=== PATIENT | male | born 1950 | race Caucasian/White ===

== ENCOUNTER 2019-05-16 09:06 | Outpatient (RCR) | payer MEDICARE, OTHER, SELFPAY ==
[2019-05-16 09:36] VITALS: BP 133/82; PULSE 90; RESP 16; TEMP 37.2; BMI 36.3
--- NOTE | 2019-05-16 16:57 | HP.PCM_ITS ---
(1) Cutaneous T-cell lymphoma Status: Acute Current Visit: Yes Code(s): C84.A0 - Cutaneous T-cell lymphoma, unspecified, unspecified site (2) Skin ulcer Status: Chronic Current Visit: Yes Qualifiers: Non-pressure ulcer stage: limited to breakdown of skin Qualified Code(s): L98.491 - Non-pressure chronic ulcer of skin of other sites limited to breakdown of skin Code(s): L98.499 - Non-pressure chronic ulcer of skin of other sites with unspecified severity Comment: Multiple sites/ Generalized. History of Present Illness Date of Service: 05/17/19 Chief Complaint: Nonhealing skin ulcer History of Wound: Mr. Saunders is a 68-year-old who presents to the wound center due to nonhealing almost generalized skin ulcer. 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 Over the months, has used Xeroform and an absorptive dressing without any significant improvement. Reports significant drainage from all ulcer sites. Also currently on Eliquis due to deep vein thrombosis with subsequent easy bleeding. He feels well otherwise. Denies chills, fever. Currently undergoing chemotherapy as well and follows up at [facility]. Past Medical History Past Medical History: Chronic Problems Skin ulcer (Chronic) Multiple sites/ Generalized. Allergies/Adverse Reactions: Allergies cephalexin Allergy (Verified 05/16/19 10:37) Hives Home Medications: Ambulatory Orders Medication Instructions Recorded Acyclovir [Zovirax] 400 mg PO BID 05/16/19 Apixaban [Eliquis] 5 mg PO BID 05/16/19 Atorvastatin Calcium [Lipitor] 10 mg PO QHS 05/16/19 DiphenhydrAMINE [Benadryl] 50 mg PO BID PRN PRN 05/16/19 Doxycycline 100 mg PO DAILY 05/16/19 Finasteride [Proscar] 5 mg PO DAILY 05/16/19 Gabapentin 1,200 mg PO BID 05/16/19 Gemzar 05/16/19 Levothyroxine Sodium [Synthroid] 50 mcg PO DAILY 05/16/19 Tamsulosin HCl [Flomax] 0.4 mg PO DAILY 05/16/19 Smoking Status: Never smoker Review of Systems Constitutional: Denies: Anorexia, Chills, Fever Eyes: Denies: Pain, Redness HEENT: Denies: Difficulty Swallowing Cardiovascular: Denies: Chest Pain, Chest Pressure Gastrointestinal: Denies: Hematemesis, Vomiting Skin: Denies: Jaundice - Physical Exam Vital Signs Temp Pulse Resp BP 98.9 F 90 16 133/82 H 05/16/19 09:36 05/16/19 09:36 05/16/19 09:36 05/16/19 09:36 General: Alert, Oriented x3, Cooperative, No apparent distress HEENT: Atraumatic, Normocephalic Oral: Moist Mucosa Neck: Supple Lungs: Normal air movement Abdomen: Soft, Obese Extremities: No cyanosis, Edema Skin: Ulcer/ Wound Wound Measurements and Assessment WC - Nurse 1 - General Ulcer Measurement Start: 05/16/19 09:30 Freq: Status: Active Protocol: Activity Type Activity Date Activity User E-Sign Co-Sign Detail Recorded Client Recorded Date Recorded By Document 05/16/19 09:[address] [facility] [id number] 05/16/19 10:[address] [facility] 05/16/19 09:36 Wound Center Nurse 1 [Ulcer Assessment] #10 SCROTRUM (CTCL) -Combined with other wound No -Current Size (cm) - Length 1.9 -Current Size (cm) - Width 1.8 -Current Size (cm) - Depth 0.1 -Total Square Cm 3.42 -Date of Last Picture (Recall this 05/16/19 field) -Photo Taken Yes -Epithelialization None Present -Tunneling No -Undermining/Tunneling No -Circular Undermining No -Exudate Amt None Present -Wound Margin Distinct, Outline Attached -Granulation Amt Medium (34-66%) -Granulation Quality Red -Slough/Fibrin Yes -Necrosis Amt Medium (34-66%) -Necrotic Tissue Type Adherent Slough -Texture (Adele-wound Skin Appearance) Assessed, Scarring -Moisture (Adele-wound Skin Appearance Assessed,Dry/ ) Scaly -Color (Adele-wound Skin Appearance) Assessed, Erythema -Temperature (Adele-wound Skin No Abnormality Appearance) (Pt Warm) -Tenderness on Palpation (Adele-wound No Skin Appearance) -Ulcer Cleansing Rinsed/ Irrigated with Saline -Foul Odor after Cleansing No -Anesthetic Used 4% Lidocaine Solution #9- RIGHT THIGH CLUSTER (CTCL) -Combined with other wound No -Current Size (cm) - Length 22 -Current Size (cm) - Width 21 -Current Size (cm) - Depth 0.1 -Total Square Cm 462 -Date of Last Picture (Recall this 05/16/19 field) -Photo Taken Yes -Epithelialization None Present -Tunneling No -Undermining/Tunneling No -Circular Undermining No -Exudate Amt None Present -Wound Margin Distinct, Outline Attached -Granulation Amt Medium (34-66%) -Granulation Quality Red -Slough/Fibrin Yes -Necrosis Amt Medium (34-66%) -Necrotic Tissue Type Eschar -Texture (Adele-wound Skin Appearance) Assessed, Scarring -Moisture (Adele-wound Skin Appearance Assessed,Dry/ ) Scaly -Color (Adele-wound Skin Appearance) Assessed, Erythema -Temperature (Adele-wound Skin No Abnormality Appearance) (Pt Warm) -Tenderness on Palpation (Adele-wound Yes Skin Appearance) -Ulcer Cleansing Rinsed/ Irrigated with Saline -Foul Odor after Cleansing No -Anesthetic Used 5% Lidocaine Gel #8- LEFT THIGH CLUSTER (CTCL) -Combined with other wound No -Current Size (cm) - Length 41 -Current Size (cm) - Width 33.5 -Current Size (cm) - Depth 0.1 -Total Square Cm 1373.5 -Date of Last Picture (Recall this 05/16/19 field) -Photo Taken Yes -Epithelialization None Present -Tunneling No -Undermining/Tunneling No -Circular Undermining No -Exudate Amt None Present -Exudate Type Serous -Wound Margin Distinct, Outline Attached -Granulation Amt Small (1-33%) -Granulation Quality Red -Slough/Fibrin Yes -Necrosis Amt Large (67-100%) -Necrotic Tissue Type Eschar -Texture (Adele-wound Skin Appearance) Assessed, Scarring -Moisture (Adele-wound Skin Appearance Assessed,Dry/ ) Scaly -Color (Adele-wound Skin Appearance) Assessed, Erythema -Temperature (Adele-wound Skin No Abnormality Appearance) (Pt Warm) -Tenderness on Palpation (Adele-wound Yes Skin Appearance) -Ulcer Cleansing Rinsed/ Irrigated with Saline -Foul Odor after Cleansing No -Anesthetic Used 5% Lidocaine Gel #7- L FLANK CLUSTER (CTCL) -Combined with other wound No -Current Size (cm) - Length 4.1 -Current Size (cm) - Width 5.8 -Current Size (cm) - Depth 0.1 -Total Square Cm 23.78 -Date of Last Picture (Recall this 05/16/19 field) -Photo Taken Yes -Epithelialization None Present -Tunneling No -Undermining/Tunneling No -Circular Undermining No -Exudate Amt Small -Exudate Type Serous -Wound Margin Distinct, Outline Attached -Granulation Amt Medium (34-66%) -Granulation Quality Red -Slough/Fibrin Yes -Necrosis Amt Medium (34-66%) -Necrotic Tissue Type Eschar -Texture (Adele-wound Skin Appearance) Assessed, Scarring -Moisture (Adele-wound Skin Appearance Assessed,Dry/ ) Scaly -Color (Adele-wound Skin Appearance) Assessed, Erythema -Temperature (Adele-wound Skin No Abnormality Appearance) (Pt Warm) -Tenderness on Palpation (Adele-wound Yes Skin Appearance) -Ulcer Cleansing Rinsed/ Irrigated with Saline -Foul Odor after Cleansing No -Anesthetic Used 5% Lidocaine Gel #6- BACK CLUSTER -Combined with other wound No -Current Size (cm) - Length 18 -Current Size (cm) - Width 22.2 -Current Size (cm) - Depth 0.1 -Total Square Cm 399.6 -Date of Last Picture (Recall this 05/16/19 field) -Photo Taken Yes -Epithelialization None Present -Tunneling No -Undermining/Tunneling No -Circular Undermining No -Exudate Amt Small -Exudate Type Serous -Wound Margin Distinct, Outline Attached -Granulation Amt Medium (34-66%) -Granulation Quality Red -Slough/Fibrin Yes -Necrosis Amt Medium (34-66%) -Necrotic Tissue Type Eschar -Texture (Adele-wound Skin Appearance) Assessed, Scarring -Moisture (Adele-wound Skin Appearance Assessed,Dry/ ) Scaly -Color (Adele-wound Skin Appearance) Assessed, Erythema -Temperature (Adele-wound Skin No Abnormality Appearance) (Pt Warm) -Tenderness on Palpation (Adele-wound Yes Skin Appearance) -Ulcer Cleansing Rinsed/ Irrigated with Saline -Foul Odor after Cleansing No -Anesthetic Used 5% Lidocaine Gel #5- FACIAL CLUSTER (CTCL) -Combined with other wound No -Current Size (cm) - Length 13 -Current Size (cm) - Width 20.8 -Current Size (cm) - Depth 0.1 -Total Square Cm 270.4 -Date of Last Picture (Recall this 05/16/19 field) -Photo Taken Yes -Epithelialization None Present -Tunneling No -Undermining/Tunneling No -Circular Undermining No -Exudate Amt None Present -Wound Margin Distinct, Outline Attached -Granulation Amt Small (1-33%) -Granulation Quality Red -Slough/Fibrin Yes -Necrosis Amt Large (67-100%) -Necrotic Tissue Type Eschar -Texture (Adele-wound Skin Appearance) Assessed, Scarring -Moisture (Adele-wound Skin Appearance Assessed,Dry/ ) Scaly -Color (Adele-wound Skin Appearance) Assessed, Erythema -Temperature (Adele-wound Skin No Abnormality Appearance) (Pt Warm) -Tenderness on Palpation (Adele-wound Yes Skin Appearance) -Ulcer Cleansing Rinsed/ Irrigated with Saline -Foul Odor after Cleansing No -Anesthetic Used 5% Lidocaine Gel #4- LUE CLUSTER (CTCL) -Combined with other wound No -Current Size (cm) - Length 45 -Current Size (cm) - Width 18 -Current Size (cm) - Depth 0.1 -Total Square Cm 810 -Date of Last Picture (Recall this 05/16/19 field) -Photo Taken Yes -Epithelialization None Present -Tunneling No -Undermining/Tunneling No -Circular Undermining No -Exudate Amt Small -Exudate Type Serous -Wound Margin Distinct, Outline Attached -Granulation Amt Medium (34-66%) -Granulation Quality Red -Slough/Fibrin Yes -Necrosis Amt Medium (34-66%) -Necrotic Tissue Type Eschar -Texture (Adele-wound Skin Appearance) Assessed, Scarring -Moisture (Adele-wound Skin Appearance Assessed,Dry/ ) Scaly -Color (Adele-wound Skin Appearance) Assessed, Erythema -Temperature (Adele-wound Skin No Abnormality Appearance) (Pt Warm) -Tenderness on Palpation (Adele-wound Yes Skin Appearance) -Ulcer Cleansing Rinsed/ Irrigated with Saline -Foul Odor after Cleansing No -Anesthetic Used 5% Lidocaine Gel #3- RUE CLUSTER (CTCL) -Combined with other wound No -Current Size (cm) - Length 53.4 -Current Size (cm) - Width 10 -Current Size (cm) - Depth 0.1 -Total Square Cm 534.0 -Date of Last Picture (Recall this 05/16/19 field) -Photo Taken Yes -Epithelialization None Present -Tunneling No -Undermining/Tunneling No -Circular Undermining No -Exudate Amt Small -Exudate Type Serous -Wound Margin Distinct, Outline Attached -Granulation Amt Medium (34-66%) -Granulation Quality Red -Slough/Fibrin Yes -Necrosis Amt Medium (34-66%) -Necrotic Tissue Type Eschar -Structure Exposed None/Limited to Skin Breakdown -Texture (Adele-wound Skin Appearance) Assessed, Scarring -Moisture (Adele-wound Skin Appearance Assessed,Dry/ ) Scaly -Color (Adele-wound Skin Appearance) Assessed, Erythema -Temperature (Adele-wound Skin No Abnormality Appearance) (Pt Warm) -Tenderness on Palpation (Adele-wound Yes Skin Appearance) -Ulcer Cleansing Rinsed/ Irrigated with Saline -Foul Odor after Cleansing No -Anesthetic Used 5% Lidocaine Gel #2- L CHEST (CTCL) -Combined with other wound No -Current Size (cm) - Length 2.4 -Current Size (cm) - Width 2.4 -Current Size (cm) - Depth 0.1 -Total Square Cm 5.76 -Date of Last Picture (Recall this 05/16/19 field) -Photo Taken Yes -Epithelialization None Present -Tunneling No -Undermining/Tunneling No -Circular Undermining No -Exudate Amt None Present -Wound Margin Distinct, Outline Attached -Granulation Amt Large (67-100%) -Granulation Quality Red -Slough/Fibrin Yes -Necrosis Amt Small (1-33%) -Necrotic Tissue Type Eschar -Structure Exposed None/Limited to Skin Breakdown -Texture (Adele-wound Skin Appearance) Assessed, Scarring -Moisture (Adele-wound Skin Appearance Assessed,Dry/ ) Scaly -Color (Adele-wound Skin Appearance) Assessed, Erythema -Temperature (Adele-wound Skin No Abnormality Appearance) (Pt Warm) -Tenderness on Palpation (Adele-wound Yes Skin Appearance) -Ulcer Cleansing Rinsed/ Irrigated with Saline -Foul Odor after Cleansing No -Anesthetic Used 5% Lidocaine Gel #1- ABDOMINAL CLUSTER (CTCL) -Current Size (cm) - Length 19 -Current Size (cm) - Width 36.2 -Current Size (cm) - Depth 0.1 -Total Square Cm 687.8 -Date of Last Picture (Recall this 05/16/19 field) -Photo Taken Yes -Epithelialization None Present -Tunneling No -Undermining/Tunneling No -Circular Undermining No -Exudate Amt Small -Exudate Type Serosanguineous -Wound Margin Distinct, Outline Attached -Granulation Amt Large (67-100%) -Granulation Quality Red -Slough/Fibrin Yes -Necrosis Amt Small (1-33%) -Necrotic Tissue Type Eschar -Structure Exposed None/Limited to Skin Breakdown -Texture (Adele-wound Skin Appearance) Assessed, Scarring -Moisture (Adele-wound Skin Appearance Assessed,Dry/ ) Scaly -Color (Adele-wound Skin Appearance) Assessed, Erythema -Temperature (Adele-wound Skin No Abnormality Appearance) (Pt Warm) -Tenderness on Palpation (Adele-wound Yes Skin Appearance) -Ulcer Cleansing Rinsed/ Irrigated with Saline -Foul Odor after Cleansing No -Anesthetic Used 4% Lidocaine Solution [Edema Assessment] -Lower Limb Edema Present Yes -Right Calf (cm) 46 -Right Ankle (cm) 28.4 -Left Calf (cm) 45 -Left Ankle (cm) 27 WC - Nurse 2 - General Ulcer CM Notes Start: 05/16/19 09:30 Freq: Status: Active Protocol: Activity Type Activity Date Activity User E-Sign Co-Sign Detail Recorded Client Recorded Date Recorded By Document 05/16/19 11:24 MW [id number] 05/16/19 12:13 MW 05/16/19 11:24 Wound Center Nurse 2 [Procedure/Treatment] #10 SCROTRUM (CTCL) -Time 12:03 -Correct Patient Yes -Correct Side, Site, Position Yes -Correct Procedure Yes -Procedure Performed Yes -Type of Procedure Debridement -Clinical Debridement Subcutaneous -Post Debridement Size (cm) - Length 2.0 -Post Debridement Size (cm) - Width 3.0 -Post Debridement Size (cm) - Depth 0.1 -Total Square Cm 6.00 -Wound/Ulcer Outcome Not Healed -Ulcer Cleansing Rinsed/ Irrigated with Saline -Foul Odor after Cleansing No -Bioengineered Tissue No -Bleeding Controlled with Pressure -Offloading No -Treatment Response Procedure Tolerated Well #9- RIGHT THIGH CLUSTER (CTCL) -Time 12:03 -Correct Patient Yes -Correct Side, Site, Position Yes -Correct Procedure Yes -Procedure Performed Yes -Type of Procedure Debridement -Clinical Debridement Subcutaneous -Post Debridement Size (cm) - Length 23.0 -Post Debridement Size (cm) - Width 4.0 -Post Debridement Size (cm) - Depth 0.1 -Total Square Cm 92.00 -Wound/Ulcer Outcome Not Healed -Ulcer Cleansing Rinsed/ Irrigated with Saline -Foul Odor after Cleansing No -Bioengineered Tissue No -Bleeding Controlled with Pressure -Offloading No -Treatment Response Procedure Tolerated Well #8- LEFT THIGH CLUSTER (CTCL) -Time 12:01 -Correct Patient Yes -Correct Side, Site, Position Yes -Correct Procedure Yes -Procedure Performed Yes -Type of Procedure Debridement -Clinical Debridement Subcutaneous -Post Debridement Size (cm) - Length 15.0 -Post Debridement Size (cm) - Width 6.0 -Post Debridement Size (cm) - Depth 0.1 -Total Square Cm 90.00 -Wound/Ulcer Outcome Not Healed -Ulcer Cleansing Rinsed/ Irrigated with Saline -Foul Odor after Cleansing No -Bioengineered Tissue No -Bleeding Controlled with Pressure -Offloading No -Treatment Response Procedure Tolerated Well #7- L FLANK CLUSTER ([facility]) -Time 11:56 -Correct Patient Yes -Correct Side, Site, Position Yes -Correct Procedure Yes -Procedure Performed Yes -Type of Procedure Debridement -Clinical Debridement Subcutaneous -Post Debridement Size (cm) - Length 2.5 -Post Debridement Size (cm) - Width 7.0 -Post Debridement Size (cm) - Depth 0.1 -Total Square Cm 17.50 -Wound/Ulcer Outcome Not Healed -Ulcer Cleansing Rinsed/ Irrigated with Saline -Foul Odor after Cleansing No -Bioengineered Tissue No -Bleeding Controlled with Pressure -Offloading No -Treatment Response Procedure Tolerated Well #6- BACK CLUSTER -Time 11:57 -Correct Patient Yes -Correct Side, Site, Position Yes -Correct Procedure Yes -Procedure Performed Yes -Type of Procedure Debridement -Clinical Debridement Subcutaneous -Post Debridement Size (cm) - Length 24.0 -Post Debridement Size (cm) - Width 22.0 -Post Debridement Size (cm) - Depth 0.1 -Total Square Cm 528.00 -Wound/Ulcer Outcome Not Healed -Ulcer Cleansing Rinsed/ Irrigated with Saline -Foul Odor after Cleansing No -Bioengineered Tissue No -Bleeding Controlled with NA -Offloading No -Treatment Response Procedure Tolerated Well #5- FACIAL CLUSTER (CTCL) -Time 11:49 -Correct Patient Yes -Correct Side, Site, Position Yes -Correct Procedure Yes -Procedure Performed Yes -Type of Procedure Debridement -Clinical Debridement Subcutaneous -Post Debridement Size (cm) - Length 6.0 -Post Debridement Size (cm) - Width 6.0 -Post Debridement Size (cm) - Depth 0.1 -Total Square Cm 36.00 -Wound/Ulcer Outcome Not Healed -Ulcer Cleansing Rinsed/ Irrigated with Saline -Foul Odor after Cleansing No -Bioengineered Tissue No -Bleeding Controlled with Pressure -Offloading No -Treatment Response Procedure Tolerated Well #4- LUE CLUSTER ([facility]) -Time 11:33 -Correct Patient Yes -Correct Side, Site, Position Yes -Correct Procedure Yes -Procedure Performed Yes -Type of Procedure Debridement -Clinical Debridement Selective -Post Debridement Size (cm) - Length 48.0 -Post Debridement Size (cm) - Width 17.0 -Post Debridement Size (cm) - Depth 0.1 -Total Square Cm 816.00 -Wound/Ulcer Outcome Not Healed -Ulcer Cleansing Rinsed/ Irrigated with Saline -Foul Odor after Cleansing No -Bioengineered Tissue No -Bleeding Controlled with Pressure -Offloading No -Treatment Response Procedure Tolerated Well #3- RUE CLUSTER ([facility]) -Time 11:45 -Correct Patient Yes -Correct Side, Site, Position Yes -Correct Procedure Yes -Procedure Performed Yes -Type of Procedure Debridement -Clinical Debridement Subcutaneous -Post Debridement Size (cm) - Length 55.0 -Post Debridement Size (cm) - Width 15.0 -Post Debridement Size (cm) - Depth 0.1 -Total Square Cm 825.00 -Wound/Ulcer Outcome Not Healed -Ulcer Cleansing Rinsed/ Irrigated with Saline -Foul Odor after Cleansing No -Bioengineered Tissue No -Bleeding Controlled with Pressure -Offloading No -Treatment Response Procedure Tolerated Well #2- L CHEST ([facility]) -Time 11:54 -Correct Patient Yes -Correct Side, Site, Position Yes -Correct Procedure Yes -Procedure Performed Yes -Type of Procedure Debridement -Clinical Debridement Subcutaneous -Post Debridement Size (cm) - Length 5.0 -Post Debridement Size (cm) - Width 7.5 -Post Debridement Size (cm) - Depth 0.1 -Total Square Cm 37.50 -Wound/Ulcer Outcome Not Healed -Ulcer Cleansing Rinsed/ Irrigated with Saline -Foul Odor after Cleansing No -Bioengineered Tissue No -Bleeding Controlled with Pressure -Offloading No -Treatment Response Procedure Tolerated Well #1- ABDOMINAL CLUSTER (CTCL) -Time 11:29 -Correct Patient Yes -Correct Side, Site, Position Yes -Correct Procedure Yes -Procedure Performed Yes -Type of Procedure Debridement -Clinical Debridement Subcutaneous -Post Debridement Size (cm) - Length 24.0 -Post Debridement Size (cm) - Width 38.0 -Post Debridement Size (cm) - Depth 0.1 -Total Square Cm 912.00 -Wound/Ulcer Outcome Not Healed -Ulcer Cleansing Rinsed/ Irrigated with Saline -Foul Odor after Cleansing No -Bioengineered Tissue No -Bleeding Controlled with Pressure -Offloading No -Treatment Response Procedure Tolerated Well [See Physician Procedure note for Specifics] Musculoskeletal: No Muscle Wasting Neurological: Cranial nerves II-XII grossly intact Psych/Mental Status: Normal Affect Debridement Note Post-Debridement Measurements/Treatment WC - Nurse 2 - General Ulcer CM Notes Start: 05/16/19 09:30 Freq: Status: Active Protocol: Activity Type Activity Date Activity User E-Sign Co-Sign Detail Recorded Client Recorded Date Recorded By Document 05/16/19 11:24 MW [id number] 05/16/19 12:13 MW 05/16/19 11:24 Wound Center Nurse 2 #10 SCROTRUM ([facility]) -Time 12:03 -Correct Patient Yes -Correct Side, Site, Position Yes -Correct Procedure Yes -Procedure Performed Yes -Type of Procedure Debridement -Clinical Debridement Subcutaneous -Post Debridement Size (cm) - Length 2.0 -Post Debridement Size (cm) - Width 3.0 -Post Debridement Size (cm) - Depth 0.1 -Total Square Cm 6.00 -Wound/Ulcer Outcome Not Healed -Ulcer Cleansing Rinsed/ Irrigated with Saline -Foul Odor after Cleansing No -Bioengineered Tissue No -Bleeding Controlled with Pressure -Offloading No -Treatment Response Procedure Tolerated Well #9- RIGHT THIGH CLUSTER ([facility]) -Time 12:03 -Correct Patient Yes -Correct Side, Site, Position Yes -Correct Procedure Yes -Procedure Performed Yes -Type of Procedure Debridement -Clinical Debridement Subcutaneous -Post Debridement Size (cm) - Length 23.0 -Post Debridement Size (cm) - Width 4.0 -Post Debridement Size (cm) - Depth 0.1 -Total Square Cm 92.00 -Wound/Ulcer Outcome Not Healed -Ulcer Cleansing Rinsed/ Irrigated with Saline -Foul Odor after Cleansing No -Bioengineered Tissue No -Bleeding Controlled with Pressure -Offloading No -Treatment Response Procedure Tolerated Well #8- LEFT THIGH CLUSTER ([facility]) -Time 12:01 -Correct Patient Yes -Correct Side, Site, Position Yes -Correct Procedure Yes -Procedure Performed Yes -Type of Procedure Debridement -Clinical Debridement Subcutaneous -Post Debridement Size (cm) - Length 15.0 -Post Debridement Size (cm) - Width 6.0 -Post Debridement Size (cm) - Depth 0.1 -Total Square Cm 90.00 -Wound/Ulcer Outcome Not Healed -Ulcer Cleansing Rinsed/ Irrigated with Saline -Foul Odor after Cleansing No -Bioengineered Tissue No -Bleeding Controlled with Pressure -Offloading No -Treatment Response Procedure Tolerated Well #7- L FLANK CLUSTER ([facility]) -Time 11:56 -Correct Patient Yes -Correct Side, Site, Position Yes -Correct Procedure Yes -Procedure Performed Yes -Type of Procedure Debridement -Clinical Debridement Subcutaneous -Post Debridement Size (cm) - Length 2.5 -Post Debridement Size (cm) - Width 7.0 -Post Debridement Size (cm) - Depth 0.1 -Total Square Cm 17.50 -Wound/Ulcer Outcome Not Healed -Ulcer Cleansing Rinsed/ Irrigated with Saline -Foul Odor after Cleansing No -Bioengineered Tissue No -Bleeding Controlled with Pressure -Offloading No -Treatment Response Procedure Tolerated Well #6- BACK CLUSTER -Time 11:57 -Correct Patient Yes -Correct Side, Site, Position Yes -Correct Procedure Yes -Procedure Performed Yes -Type of Procedure Debridement -Clinical Debridement Subcutaneous -Post Debridement Size (cm) - Length 24.0 -Post Debridement Size (cm) - Width 22.0 -Post Debridement Size (cm) - Depth 0.1 -Total Square Cm 528.00 -Wound/Ulcer Outcome Not Healed -Ulcer Cleansing Rinsed/ Irrigated with Saline -Foul Odor after Cleansing No -Bioengineered Tissue No -Bleeding Controlled with NA -Offloading No -Treatment Response Procedure Tolerated Well #5- FACIAL CLUSTER ([facility]) -Time 11:49 -Correct Patient Yes -Correct Side, Site, Position Yes -Correct Procedure Yes -Procedure Performed Yes -Type of Procedure Debridement -Clinical Debridement Subcutaneous -Post Debridement Size (cm) - Length 6.0 -Post Debridement Size (cm) - Width 6.0 -Post Debridement Size (cm) - Depth 0.1 -Total Square Cm 36.00 -Wound/Ulcer Outcome Not Healed -Ulcer Cleansing Rinsed/ Irrigated with Saline -Foul Odor after Cleansing No -Bioengineered Tissue No -Bleeding Controlled with Pressure -Offloading No -Treatment Response Procedure Tolerated Well #4- LUE CLUSTER ([facility]) -Time 11:33 -Correct Patient Yes -Correct Side, Site, Position Yes -Correct Procedure Yes -Procedure Performed Yes -Type of Procedure Debridement -Clinical Debridement Selective -Post Debridement Size (cm) - Length 48.0 -Post Debridement Size (cm) - Width 17.0 -Post Debridement Size (cm) - Depth 0.1 -Total Square Cm 816.00 -Wound/Ulcer Outcome Not Healed -Ulcer Cleansing Rinsed/ Irrigated with Saline -Foul Odor after Cleansing No -Bioengineered Tissue No -Bleeding Controlled with Pressure -Offloading No -Treatment Response Procedure Tolerated Well #3- RUE CLUSTER ([facility]) -Time 11:45 -Correct Patient Yes -Correct Side, Site, Position Yes -Correct Procedure Yes -Procedure Performed Yes -Type of Procedure Debridement -Clinical Debridement Subcutaneous -Post Debridement Size (cm) - Length 55.0 -Post Debridement Size (cm) - Width 15.0 -Post Debridement Size (cm) - Depth 0.1 -Total Square Cm 825.00 -Wound/Ulcer Outcome Not Healed -Ulcer Cleansing Rinsed/ Irrigated with Saline -Foul Odor after Cleansing No -Bioengineered Tissue No -Bleeding Controlled with Pressure -Offloading No -Treatment Response Procedure Tolerated Well #2- L CHEST ([facility]) -Time 11:54 -Correct Patient Yes -Correct Side, Site, Position Yes -Correct Procedure Yes -Procedure Performed Yes -Type of Procedure Debridement -Clinical Debridement Subcutaneous -Post Debridement Size (cm) - Length 5.0 -Post Debridement Size (cm) - Width 7.5 -Post Debridement Size (cm) - Depth 0.1 -Total Square Cm 37.50 -Wound/Ulcer Outcome Not Healed -Ulcer Cleansing Rinsed/ Irrigated with Saline -Foul Odor after Cleansing No -Bioengineered Tissue No -Bleeding Controlled with Pressure -Offloading No -Treatment Response Procedure Tolerated Well #1- ABDOMINAL CLUSTER ([facility]) -Time 11:29 -Correct Patient Yes -Correct Side, Site, Position Yes -Correct Procedure Yes -Procedure Performed Yes -Type of Procedure Debridement -Clinical Debridement Subcutaneous -Post Debridement Size (cm) - Length 24.0 -Post Debridement Size (cm) - Width 38.0 -Post Debridement Size (cm) - Depth 0.1 -Total Square Cm 912.00 -Wound/Ulcer Outcome Not Healed -Ulcer Cleansing Rinsed/ Irrigated with Saline -Foul Odor after Cleansing No -Bioengineered Tissue No -Bleeding Controlled with Pressure -Offloading No -Treatment Response Procedure Tolerated Well Wound debrided: Left upper extremity cluster Type of Debridement: Selective debridement Anesthesia Used: 4% Lidocaine Solution Depth: Down to and including healthy tissue Percentage of wound debrided: 100 Instrument Used: 5mm curette Tissue Removed: Slough and devitalized tissue Severity: Limited To Skin Breakdown Amount of bleeding with debridement: Moderate Bleeding Controlled with: Pressure, Compression and gauze Patient tolerated procedure well - Additional Wound Wound debrided: Right upper extremity cluster Type of Debridement: Selective debridement Anesthesia Used: 4% Lidocaine Solution Depth: Down to and including healthy tissue Percentage of wound debrided: 100 Instrument Used: 5mm curette Tissue Removed: Slough and devitalized tissue Severity: Limited To Skin Breakdown Amount of bleeding with debridement: Moderate Bleeding Controlled with: Pressure Patient tolerated procedure: Patient tolerated procedure well - Additional Wound Wound debrided: Abdominal cluster Type of Debridement: Selective debridement Anesthesia Used: 4% Lidocaine Solution Depth: Down to and including healthy tissue Percentage of wound debrided: 100 Instrument Used: 5mm curette Tissue Removed: Slough and-Devitalized tissue Severity: Limited To Skin Breakdown Amount of bleeding with debridement: Moderate Bleeding Controlled with: Pressure, Compression and gauze Patient tolerated procedure: Patient tolerated procedure well - Additional Wound Wound debrided: Left flank Type of Debridement: Selective debridement Anesthesia Used: 4% Lidocaine Solution Depth: Down to and including healthy tissue Percentage of wound debrided: 100 Instrument Used: 5mm curette Tissue Removed: Slough and devitalized tissue Severity: Limited To Skin Breakdown Amount of bleeding with debridement: Mild Bleeding Controlled with: Pressure Patient tolerated procedure: Patient tolerated procedure well - Additional Wound Wound debrided: Facial cluster Type of Debridement: Selective debridement Anesthesia Used: 4% Lidocaine Solution Depth: Down to and including healthy tissue Percentage of wound debrided: 100 Instrument Used: 5mm curette Tissue Removed: Slough and devitalized tissue Amount of bleeding with debridement: Moderate Bleeding Controlled with: Pressure Patient tolerated procedure: Patient tolerated procedure well - Additional Wound Wound debrided: Mid back cluster Type of Debridement: Selective debridement Anesthesia Used: 4% Lidocaine Solution Depth: Down to and including healthy tissue Percentage of wound debrided: 100 Instrument Used: 5mm curette Tissue Removed: Slough and devitalized tissue Severity: Limited To Skin Breakdown Amount of bleeding with debridement: Moderate Bleeding Controlled with: Pressure Patient tolerated procedure: Patient tolerated procedure well - Additional Wound Wound debrided: Right thigh cluster Type of Debridement: Selective debridement Anesthesia Used: 4% Lidocaine Solution Depth: Down to and including healthy tissue, in the subcutaneous layer Percentage of wound debrided: 100 Instrument Used: 5mm curette Tissue Removed: Slough and devitalized tissue Severity: Limited To Skin Breakdown Amount of bleeding with debridement: Moderate Bleeding Controlled with: Pressure Patient tolerated procedure: Patient tolerated procedure well - Additional Wound Wound debrided: Left thigh cluster Type of Debridement: Selective debridement Anesthesia Used: 4% Lidocaine Solution Depth: Down to and including healthy tissue Percentage of wound debrided: 100 Instrument Used: 5mm curette Tissue Removed: Slough and devitalized tissue Severity: Limited To Skin Breakdown Amount of bleeding with debridement: Moderate Bleeding Controlled with: Pressure, Compression and gauze Patient tolerated procedure: Patient tolerated procedure well - Additional Wound Wound debrided: Scrotum Type of Debridement: Selective debridement Anesthesia Used: 4% Lidocaine Solution Depth: Down to and including healthy tissue Percentage of wound debrided: 100 Instrument Used: 5mm curette Tissue Removed: Slough and devitalized tissue Severity: Limited To Skin Breakdown Amount of bleeding with debridement: Mild Bleeding Controlled with: Pressure Patient tolerated procedure: Patient tolerated procedure well Assessment/Plan Active 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 DVT on anticoagulation with eliquis. Plan: Debridement done as documented above, procedure was well tolerated. Cultures taken. Aquacel extra with xeroform over areas of erythema. Change daily to twice daily depending on drainage. Will request records from . He requires HH due to extensive nature of ulcers. Increased protein intake is recommended. His questions were answered and he was advised to call with any questions or concerns. Multi Select Codes - Visit Charges Office Visit/Consults: [id number] OV L4 New - Integumentary Integumentary CPT Codes: 43884 Dina subq tissue 20 sq cm/<, Other Procedure See Report - Selective debridement. Additional square centimeters debrided. Please refer to clinical panel.
== END 2019-05-18 23:59 ==
LOC: WC 09:06
PROVIDERS: PCP Family Medicine; Referring Provider Internal Medicine; Visit Provider Internal Medicine
DX: L98.491 Non-pressure chronic ulcer of skin of other sites limited to breakdown of skin (principal); C84.A0 Cutaneous T-cell lymphoma, unspecified, unspecified site; M32.9 Systemic lupus erythematosus, unspecified; Z86.718 Personal history of other venous thrombosis and embolism; Z79.01 Long term (current) use of anticoagulants; Z79.899 Other long term (current) drug therapy; L98.421 Non-pressure chronic ulcer of back limited to breakdown of skin; L97.121 Non-pressure chronic ulcer of left thigh limited to breakdown of skin; L97.111 Non-pressure chronic ulcer of right thigh limited to breakdown of skin
CPT/HCPCS: 87070; 87075; 87077; 87186; 87205; 97597; 97598; 99203; G0463

== ENCOUNTER 2019-05-31 15:30 | Outpatient (RCR) | payer MEDICARE, OTHER, SELFPAY ==
[2019-05-19 01:12] VITALS: BP 133/82; PULSE 90; RESP 16; TEMP 37.2
[2019-05-31 15:55] VITALS: BP 148/76; PULSE 82; RESP 18; TEMP 37.2; BMI 36.3
--- NOTE | 2019-05-31 18:21 | PN.PCM_ITS ---
(1) Cutaneous T-cell lymphoma Status: Acute Current Visit: Yes Qualifiers: Lymphoma site: extranodal excluding spleen and other solid organs Qualified Code(s): C84.A9 - Cutaneous T-cell lymphoma, unspecified, extranodal and solid organ sites Code(s): C84.A0 - Cutaneous T-cell lymphoma, unspecified, unspecified site (2) Skin ulcer Status: Chronic Current Visit: Yes Qualifiers: Non-pressure ulcer stage: with fat layer exposed Qualified Code(s): L98.492 - Non-pressure chronic ulcer of skin of other sites with fat layer exposed Code(s): L98.499 - Non-pressure chronic ulcer of skin of other sites with unspecified severity Comment: Multiple sites/ Generalized. Type of Wound Date of Service: 05/31/19 Chief Complaint: Nonhealing skin ulcer History of Wound: Mr. Saunders is a 68-year-old who presents to the wound center due to nonhealing almost generalized skin ulcer. 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 Over the months, has used Xeroform and an absorptive dressing without any significant improvement. Reports significant drainage from all ulcer sites. Also currently on Eliquis due to deep vein thrombosis with subsequent easy bleeding. He feels well otherwise. Denies chills, fever. Currently undergoing chemotherapy as well and follows up at [facility]. Progress of Wound: This is a courtesy visit for Dr. Gonzalez. He is tolerating dressings and has noted much improvement in his ulcers. He has been using Aquacel to some and iodoform to others. The Aquacel has been adherent to the ulcers that he is using it on. Some ulcers drain heavily, especially the ones on his abdomen. He denies fever, chills, erythema. - Physical Exam Vital Signs Temp Pulse Resp BP 98.9 F 82 18 148/76 H 05/31/19 15:55 05/31/19 15:55 05/31/19 15:55 05/31/19 15:55 General: Alert, Oriented x3, Cooperative, No apparent distress HEENT: Atraumatic, Normocephalic Oral: Moist Mucosa Lungs: Clear to auscultation Abdomen: Obese Extremities: Edema Skin: Ulcer/ Wound Wound Measurements and Assessment WC - Nurse 1 - General Ulcer Measurement Start: 05/31/19 15:55 Freq: Status: Active Protocol: Activity Type Activity Date Activity User E-Sign Co-Sign Detail Recorded Client Recorded Date Recorded By Document 05/31/19 15:55 RB [id number] 05/31/19 16:22 RB 05/31/19 15:55 Wound Center Nurse 1 [Ulcer Assessment] #10 SCROTRUM (CTCL) -Combined with other wound No -Current Size (cm) - Length 0.1 -Current Size (cm) - Width 0.1 -Current Size (cm) - Depth 0.1 -Total Square Cm 0.01 -Tunneling No -Undermining/Tunneling No -Circular Undermining No -Exudate Amt None Present -Wound Margin Flat & Intact -Granulation Amt Large (67-100%) -Granulation Quality [place],Red -Slough/Fibrin Yes -Necrosis Amt Small (1-33%) -Necrotic Tissue Type Adherent Slough -Structure Exposed N/A -Texture (Adele-wound Skin Appearance) Assessed, Scarring -Moisture (Adele-wound Skin Appearance Assessed ) -Color (Adele-wound Skin Appearance) Assessed -Temperature (Adele-wound Skin No Abnormality Appearance) (Pt Warm) -Ulcer Cleansing Rinsed/ Irrigated with Saline -Foul Odor after Cleansing No #9- RIGHT THIGH CLUSTER (CTCL) -Combined with other wound No -Current Size (cm) - Length 5 -Current Size (cm) - Width 5.5 -Current Size (cm) - Depth 0.1 -Total Square Cm 27.5 -Tunneling No -Undermining/Tunneling No -Circular Undermining No -Exudate Amt Small -Exudate Type Serosanguineous -Wound Margin Flat & Intact -Granulation Amt Medium (34-66%) -Granulation Quality [place],Red -Slough/Fibrin Yes -Necrosis Amt Small (1-33%) -Necrotic Tissue Type Adherent Slough -Structure Exposed N/A -Texture (Adele-wound Skin Appearance) Assessed, Scarring -Moisture (Adele-wound Skin Appearance Assessed ) -Color (Adele-wound Skin Appearance) Assessed -Temperature (Adele-wound Skin No Abnormality Appearance) (Pt Warm) -Tenderness on Palpation (Adele-wound No Skin Appearance) -Ulcer Cleansing Rinsed/ Irrigated with Saline -Foul Odor after Cleansing No -Anesthetic Used 4% Lidocaine Solution #8- LEFT THIGH CLUSTER (CTCL) -Combined with other wound No -Current Size (cm) - Length 3.5 -Current Size (cm) - Width 3 -Current Size (cm) - Depth 0.1 -Total Square Cm 10.5 -Tunneling No -Undermining/Tunneling No -Circular Undermining No -Exudate Amt Small -Exudate Type Serosanguineous -Wound Margin Flat & Intact -Granulation Amt Medium (34-66%) -Granulation Quality [place],Red -Slough/Fibrin Yes -Necrosis Amt Small (1-33%) -Necrotic Tissue Type Adherent Slough -Structure Exposed N/A -Texture (Adele-wound Skin Appearance) Assessed, Scarring -Moisture (Adele-wound Skin Appearance Assessed ) -Color (Adele-wound Skin Appearance) Assessed -Temperature (Adele-wound Skin No Abnormality Appearance) (Pt Warm) -Tenderness on Palpation (Adele-wound No Skin Appearance) -Ulcer Cleansing Rinsed/ Irrigated with Saline -Foul Odor after Cleansing No -Anesthetic Used 4% Lidocaine Solution #7- L FLANK CLUSTER (CTCL) -Combined with other wound No -Current Size (cm) - Length 0 -Current Size (cm) - Width 0 -Current Size (cm) - Depth 0 -Total Square Cm 0 -Epithelialization Large 67-100% #6- BACK CLUSTER -Combined with other wound No -Current Size (cm) - Length 9 -Current Size (cm) - Width 2.5 -Current Size (cm) - Depth 0.1 -Total Square Cm 22.5 -Tunneling No -Undermining/Tunneling No -Circular Undermining No -Exudate Amt Small -Exudate Type Serosanguineous -Wound Margin Flat & Intact -Granulation Amt Medium (34-66%) -Granulation Quality [place],Red -Slough/Fibrin Yes -Necrosis Amt Small (1-33%) -Necrotic Tissue Type Adherent Slough -Structure Exposed N/A -Texture (Adele-wound Skin Appearance) Assessed, Scarring -Moisture (Adele-wound Skin Appearance Assessed ) -Color (Adele-wound Skin Appearance) Assessed -Temperature (Adele-wound Skin No Abnormality Appearance) (Pt Warm) -Tenderness on Palpation (Adele-wound No Skin Appearance) -Ulcer Cleansing Wound Cleanser -Foul Odor after Cleansing No -Anesthetic Used 4% Lidocaine Solution #5- FACIAL CLUSTER (CTCL) -Combined with other wound No -Current Size (cm) - Length 2 -Current Size (cm) - Width 1.5 -Current Size (cm) - Depth 0.1 -Total Square Cm 3.0 -Tunneling No -Undermining/Tunneling No -Circular Undermining No -Exudate Amt None Present -Wound Margin Flat & Intact -Granulation Amt None Present (0 %) -Necrosis Amt Large (67-100%) -Necrotic Tissue Type Eschar -Structure Exposed N/A -Texture (Adele-wound Skin Appearance) Assessed, Scarring -Moisture (Adele-wound Skin Appearance Assessed ) -Color (Adele-wound Skin Appearance) Assessed -Temperature (Adele-wound Skin No Abnormality Appearance) (Pt Warm) -Tenderness on Palpation (Adele-wound No Skin Appearance) -Ulcer Cleansing Wound Cleanser -Foul Odor after Cleansing No -Anesthetic Used 4% Lidocaine Solution #4- LUE CLUSTER (CTCL) -Combined with other wound No -Current Size (cm) - Length 39 -Current Size (cm) - Width 7 -Current Size (cm) - Depth 0.1 -Total Square Cm 273 -Tunneling No -Undermining/Tunneling No -Circular Undermining No -Exudate Amt Small -Exudate Type Serosanguineous -Wound Margin Flat & Intact -Granulation Amt Medium (34-66%) -Granulation Quality [place] -Slough/Fibrin Yes -Necrosis Amt Small (1-33%) -Necrotic Tissue Type Adherent Slough -Structure Exposed N/A -Texture (Adele-wound Skin Appearance) Assessed -Moisture (Adele-wound Skin Appearance Assessed ) -Color (Adele-wound Skin Appearance) Assessed -Temperature (Adele-wound Skin No Abnormality Appearance) (Pt Warm) -Tenderness on Palpation (Adele-wound No Skin Appearance) -Ulcer Cleansing Rinsed/ Irrigated with Saline -Foul Odor after Cleansing No -Anesthetic Used 4% Lidocaine Solution #3- RUE CLUSTER (CTCL) -Combined with other wound No -Current Size (cm) - Length 53 -Current Size (cm) - Width 4 -Current Size (cm) - Depth 0.1 -Total Square Cm 212 -Tunneling No -Undermining/Tunneling No -Circular Undermining No -Exudate Amt Small -Exudate Type Serosanguineous -Wound Margin Flat & Intact -Granulation Amt Medium (34-66%) -Granulation Quality [place],Red -Slough/Fibrin Yes -Necrosis Amt Small (1-33%) -Necrotic Tissue Type Adherent Slough -Structure Exposed N/A -Texture (Adele-wound Skin Appearance) Assessed, Scarring -Moisture (Adele-wound Skin Appearance Assessed ) -Color (Adele-wound Skin Appearance) Assessed -Temperature (Adele-wound Skin No Abnormality Appearance) (Pt Warm) -Tenderness on Palpation (Adele-wound No Skin Appearance) -Ulcer Cleansing Rinsed/ Irrigated with Saline -Foul Odor after Cleansing No -Anesthetic Used 4% Lidocaine Solution #2- L CHEST (CTCL) -Combined with other wound No -Current Size (cm) - Length 5.5 -Current Size (cm) - Width 6 -Current Size (cm) - Depth 0.1 -Total Square Cm 33.0 -Tunneling No -Undermining/Tunneling No -Circular Undermining No -Exudate Amt Small -Exudate Type Serosanguineous -Wound Margin Flat & Intact -Granulation Amt Medium (34-66%) -Granulation Quality [place],Red -Slough/Fibrin Yes -Necrosis Amt Small (1-33%) -Necrotic Tissue Type Adherent Slough -Structure Exposed N/A -Texture (Adele-wound Skin Appearance) Assessed, Scarring -Moisture (Adele-wound Skin Appearance Assessed ) -Color (Adele-wound Skin Appearance) Assessed -Temperature (Adele-wound Skin No Abnormality Appearance) (Pt Warm) -Tenderness on Palpation (Adele-wound No Skin Appearance) -Ulcer Cleansing Wound Cleanser -Foul Odor after Cleansing No -Anesthetic Used 4% Lidocaine Solution #1- ABDOMINAL CLUSTER (CTCL) -Combined with other wound No -Current Size (cm) - Length 21 -Current Size (cm) - Width 36.5 -Current Size (cm) - Depth 0.1 -Total Square Cm 766.5 -Tunneling No -Undermining/Tunneling No -Circular Undermining No -Exudate Amt Small -Exudate Type Serosanguineous -Wound Margin Flat & Intact -Granulation Amt Medium (34-66%) -Granulation Quality [place],Red -Slough/Fibrin Yes -Necrosis Amt Small (1-33%) -Necrotic Tissue Type Adherent Slough -Structure Exposed N/A -Texture (Adele-wound Skin Appearance) Assessed, Scarring -Moisture (Adele-wound Skin Appearance Assessed ) -Color (Adele-wound Skin Appearance) Assessed -Temperature (Adele-wound Skin No Abnormality Appearance) (Pt Warm) -Tenderness on Palpation (Adele-wound No Skin Appearance) -Ulcer Cleansing Rinsed/ Irrigated with Saline -Foul Odor after Cleansing No -Anesthetic Used 4% Lidocaine Solution WC - Nurse 2 - General Ulcer CM Notes Start: 05/31/19 15:55 Freq: Status: Active Protocol: Activity Type Activity Date Activity User E-Sign Co-Sign Detail Recorded Client Recorded Date Recorded By Document 05/31/19 16:41 DV [id number] 05/31/19 17:37 DV 05/31/19 16:41 Wound Center Nurse 2 [Procedure/Treatment] #10 SCROTRUM (CTCL) -Time 17:24 -Correct Patient Yes -Correct Side, Site, Position Yes -Correct Procedure Yes -Procedure Performed Yes -Type of Procedure Debridement -Clinical Debridement Subcutaneous, Selective -Post Debridement Size (cm) - Length 0.4 -Post Debridement Size (cm) - Width 0.4 -Post Debridement Size (cm) - Depth 0.1 -Total Square Cm 0.16 -Wound/Ulcer Outcome Not Healed -Ulcer Cleansing Rinsed/ Irrigated with Saline -Foul Odor after Cleansing No -Bioengineered Tissue No -Bleeding Controlled with Pressure -Offloading No -Treatment Response Procedure Tolerated Well #9- RIGHT THIGH CLUSTER (CTCL) -Time 17:25 -Correct Patient Yes -Correct Side, Site, Position Yes -Correct Procedure Yes -Procedure Performed Yes -Type of Procedure Debridement -Clinical Debridement Selective -Post Debridement Size (cm) - Length 5.0 -Post Debridement Size (cm) - Width 6.0 -Post Debridement Size (cm) - Depth 0.1 -Total Square Cm 30.00 -Wound/Ulcer Outcome Not Healed -Ulcer Cleansing Rinsed/ Irrigated with Saline -Foul Odor after Cleansing No -Bioengineered Tissue No -Bleeding Controlled with Pressure -Offloading No -Treatment Response Procedure Tolerated Well #8- LEFT THIGH CLUSTER (CTCL) -Time 17:26 -Correct Patient Yes -Correct Side, Site, Position Yes -Correct Procedure Yes -Procedure Performed Yes -Type of Procedure Debridement -Clinical Debridement Selective -Post Debridement Size (cm) - Length 4.0 -Post Debridement Size (cm) - Width 3.1 -Post Debridement Size (cm) - Depth 0.1 -Total Square Cm 12.40 -Wound/Ulcer Outcome Not Healed -Ulcer Cleansing Rinsed/ Irrigated with Saline -Foul Odor after Cleansing No -Bioengineered Tissue No -Bleeding Controlled with Pressure -Offloading No -Treatment Response Procedure Tolerated Well #6- BACK CLUSTER -Time 17:27 -Correct Patient Yes -Correct Side, Site, Position Yes -Correct Procedure Yes -Procedure Performed Yes -Type of Procedure Debridement -Clinical Debridement Selective -Post Debridement Size (cm) - Length 9.1 -Post Debridement Size (cm) - Width 3.0 -Post Debridement Size (cm) - Depth 0.1 -Total Square Cm 27.30 -Wound/Ulcer Outcome Not Healed -Ulcer Cleansing Rinsed/ Irrigated with Saline -Foul Odor after Cleansing No -Bioengineered Tissue No -Bleeding Controlled with Pressure -Offloading No -Treatment Response Procedure Tolerated Well #5- FACIAL CLUSTER (CTCL) -Time 17:29 -Correct Patient Yes -Correct Side, Site, Position Yes -Correct Procedure Yes -Procedure Performed Yes -Type of Procedure Debridement -Clinical Debridement Selective -Post Debridement Size (cm) - Length 2.5 -Post Debridement Size (cm) - Width 1.5 -Post Debridement Size (cm) - Depth 0.1 -Total Square Cm 3.75 -Wound/Ulcer Outcome Not Healed -Ulcer Cleansing Rinsed/ Irrigated with Saline -Foul Odor after Cleansing No -Bioengineered Tissue No -Bleeding Controlled with Pressure -Offloading No -Treatment Response Procedure Tolerated Well #4- LUE CLUSTER (CTCL) -Time 17:29 -Correct Patient Yes -Correct Side, Site, Position Yes -Correct Procedure Yes -Procedure Performed Yes -Type of Procedure Debridement -Clinical Debridement Selective -Post Debridement Size (cm) - Length 40 -Post Debridement Size (cm) - Width 7.0 -Post Debridement Size (cm) - Depth 0.1 -Total Square Cm 280.0 -Wound/Ulcer Outcome Not Healed -Ulcer Cleansing Rinsed/ Irrigated with Saline -Foul Odor after Cleansing No -Bioengineered Tissue No -Bleeding Controlled with Pressure -Offloading No -Treatment Response Procedure Tolerated Well #3- RUE CLUSTER (CTCL) -Time 17:31 -Correct Patient Yes -Correct Side, Site, Position Yes -Correct Procedure Yes -Procedure Performed Yes -Type of Procedure Debridement -Clinical Debridement Selective -Post Debridement Size (cm) - Length 54.0 -Post Debridement Size (cm) - Width 4.0 -Post Debridement Size (cm) - Depth 0.1 -Total Square Cm 216.00 -Wound/Ulcer Outcome Not Healed -Ulcer Cleansing Rinsed/ Irrigated with Saline -Foul Odor after Cleansing No -Bioengineered Tissue No -Bleeding Controlled with Pressure -Offloading No -Treatment Response Procedure Tolerated Well #2- L CHEST (CTCL) -Time 17:32 -Correct Patient Yes -Correct Side, Site, Position Yes -Correct Procedure Yes -Procedure Performed Yes -Clinical Debridement Selective -Post Debridement Size (cm) - Length 2.1 -Post Debridement Size (cm) - Width 2.0 -Post Debridement Size (cm) - Depth 0.1 -Total Square Cm 4.20 -Wound/Ulcer Outcome Not Healed -Ulcer Cleansing Rinsed/ Irrigated with Saline -Foul Odor after Cleansing No -Bioengineered Tissue No -Bleeding Controlled with Pressure -Offloading No -Treatment Response Procedure Tolerated Well #1- ABDOMINAL CLUSTER (CTCL) -Time 17:33 -Correct Patient Yes -Correct Side, Site, Position Yes -Correct Procedure Yes -Procedure Performed Yes -Type of Procedure Debridement -Clinical Debridement Selective -Post Debridement Size (cm) - Length 31.5 -Post Debridement Size (cm) - Width 37.0 -Post Debridement Size (cm) - Depth 0.1 -Total Square Cm 1165.50 -Wound/Ulcer Outcome Not Healed -Ulcer Cleansing Rinsed/ Irrigated with Saline -Foul Odor after Cleansing No -Bioengineered Tissue No -Bleeding Controlled with Pressure -Offloading No -Treatment Response Procedure Tolerated Well [See Physician Procedure note for Specifics] Pain Scale: 0-10 Numeric [Pain] -Is Patient Pain Free? Yes Psych/Mental Status: Normal Affect, Appropriate Debridement Note Post-Debridement Measurements/Treatment WC - Nurse 2 - General Ulcer CM Notes Start: 05/31/19 15:55 Freq: Status: Active Protocol: Activity Type Activity Date Activity User E-Sign Co-Sign Detail Recorded Client Recorded Date Recorded By Document 05/31/19 16:41 DV [id number] 05/31/19 17:37 DV 05/31/19 16:41 Wound Center Nurse 2 #10 SCROTRUM ([facility]) -Time 17:24 -Correct Patient Yes -Correct Side, Site, Position Yes -Correct Procedure Yes -Procedure Performed Yes -Type of Procedure Debridement -Clinical Debridement Subcutaneous, Selective -Post Debridement Size (cm) - Length 0.4 -Post Debridement Size (cm) - Width 0.4 -Post Debridement Size (cm) - Depth 0.1 -Total Square Cm 0.16 -Wound/Ulcer Outcome Not Healed -Ulcer Cleansing Rinsed/ Irrigated with Saline -Foul Odor after Cleansing No -Bioengineered Tissue No -Bleeding Controlled with Pressure -Offloading No -Treatment Response Procedure Tolerated Well #9- RIGHT THIGH CLUSTER ([facility]) -Time 17:25 -Correct Patient Yes -Correct Side, Site, Position Yes -Correct Procedure Yes -Procedure Performed Yes -Type of Procedure Debridement -Clinical Debridement Selective -Post Debridement Size (cm) - Length 5.0 -Post Debridement Size (cm) - Width 6.0 -Post Debridement Size (cm) - Depth 0.1 -Total Square Cm 30.00 -Wound/Ulcer Outcome Not Healed -Ulcer Cleansing Rinsed/ Irrigated with Saline -Foul Odor after Cleansing No -Bioengineered Tissue No -Bleeding Controlled with Pressure -Offloading No -Treatment Response Procedure Tolerated Well #8- LEFT THIGH CLUSTER ([facility]) -Time 17:26 -Correct Patient Yes -Correct Side, Site, Position Yes -Correct Procedure Yes -Procedure Performed Yes -Type of Procedure Debridement -Clinical Debridement Selective -Post Debridement Size (cm) - Length 4.0 -Post Debridement Size (cm) - Width 3.1 -Post Debridement Size (cm) - Depth 0.1 -Total Square Cm 12.40 -Wound/Ulcer Outcome Not Healed -Ulcer Cleansing Rinsed/ Irrigated with Saline -Foul Odor after Cleansing No -Bioengineered Tissue No -Bleeding Controlled with Pressure -Offloading No -Treatment Response Procedure Tolerated Well #6- BACK CLUSTER -Time 17:27 -Correct Patient Yes -Correct Side, Site, Position Yes -Correct Procedure Yes -Procedure Performed Yes -Type of Procedure Debridement -Clinical Debridement Selective -Post Debridement Size (cm) - Length 9.1 -Post Debridement Size (cm) - Width 3.0 -Post Debridement Size (cm) - Depth 0.1 -Total Square Cm 27.30 -Wound/Ulcer Outcome Not Healed -Ulcer Cleansing Rinsed/ Irrigated with Saline -Foul Odor after Cleansing No -Bioengineered Tissue No -Bleeding Controlled with Pressure -Offloading No -Treatment Response Procedure Tolerated Well #5- FACIAL CLUSTER ([facility]) -Time 17:29 -Correct Patient Yes -Correct Side, Site, Position Yes -Correct Procedure Yes -Procedure Performed Yes -Type of Procedure Debridement -Clinical Debridement Selective -Post Debridement Size (cm) - Length 2.5 -Post Debridement Size (cm) - Width 1.5 -Post Debridement Size (cm) - Depth 0.1 -Total Square Cm 3.75 -Wound/Ulcer Outcome Not Healed -Ulcer Cleansing Rinsed/ Irrigated with Saline -Foul Odor after Cleansing No -Bioengineered Tissue No -Bleeding Controlled with Pressure -Offloading No -Treatment Response Procedure Tolerated Well #4- LUE CLUSTER ([facility]) -Time 17:29 -Correct Patient Yes -Correct Side, Site, Position Yes -Correct Procedure Yes -Procedure Performed Yes -Type of Procedure Debridement -Clinical Debridement Selective -Post Debridement Size (cm) - Length 40 -Post Debridement Size (cm) - Width 7.0 -Post Debridement Size (cm) - Depth 0.1 -Total Square Cm 280.0 -Wound/Ulcer Outcome Not Healed -Ulcer Cleansing Rinsed/ Irrigated with Saline -Foul Odor after Cleansing No -Bioengineered Tissue No -Bleeding Controlled with Pressure -Offloading No -Treatment Response Procedure Tolerated Well #3- RUE CLUSTER ([facility]) -Time 17:31 -Correct Patient Yes -Correct Side, Site, Position Yes -Correct Procedure Yes -Procedure Performed Yes -Type of Procedure Debridement -Clinical Debridement Selective -Post Debridement Size (cm) - Length 54.0 -Post Debridement Size (cm) - Width 4.0 -Post Debridement Size (cm) - Depth 0.1 -Total Square Cm 216.00 -Wound/Ulcer Outcome Not Healed -Ulcer Cleansing Rinsed/ Irrigated with Saline -Foul Odor after Cleansing No -Bioengineered Tissue No -Bleeding Controlled with Pressure -Offloading No -Treatment Response Procedure Tolerated Well #2- L CHEST ([facility]) -Time 17:32 -Correct Patient Yes -Correct Side, Site, Position Yes -Correct Procedure Yes -Procedure Performed Yes -Clinical Debridement Selective -Post Debridement Size (cm) - Length 2.1 -Post Debridement Size (cm) - Width 2.0 -Post Debridement Size (cm) - Depth 0.1 -Total Square Cm 4.20 -Wound/Ulcer Outcome Not Healed -Ulcer Cleansing Rinsed/ Irrigated with Saline -Foul Odor after Cleansing No -Bioengineered Tissue No -Bleeding Controlled with Pressure -Offloading No -Treatment Response Procedure Tolerated Well #1- ABDOMINAL CLUSTER (CTCL) -Time 17:33 -Correct Patient Yes -Correct Side, Site, Position Yes -Correct Procedure Yes -Procedure Performed Yes -Type of Procedure Debridement -Clinical Debridement Selective -Post Debridement Size (cm) - Length 31.5 -Post Debridement Size (cm) - Width 37.0 -Post Debridement Size (cm) - Depth 0.1 -Total Square Cm 1165.50 -Wound/Ulcer Outcome Not Healed -Ulcer Cleansing Rinsed/ Irrigated with Saline -Foul Odor after Cleansing No -Bioengineered Tissue No -Bleeding Controlled with Pressure -Offloading No -Treatment Response Procedure Tolerated Well Pain Scale: 0-10 Numeric Is Patient Pain Free? Yes Wound debrided: scrotum Laterality: Right Type of Debridement: Selective debridement Anesthesia Used: 4% Lidocaine Solution Depth: Down to and including healthy tissue, in the subcutaneous layer Percentage of wound debrided: 100 Instrument Used: - - gauze Tissue Removed: yellow slough, devitalized tissue Severity: Limited To Skin Breakdown Amount of bleeding with debridement: Mild Bleeding Controlled with: Pressure Patient tolerated procedure well - Additional Wound Wound debrided: right thigh cluster Laterality: Right Type of Debridement: Selective debridement Anesthesia Used: 4% Lidocaine Solution, 5% Lidocaine Gel Depth: Down to and including healthy tissue, in the subcutaneous layer Percentage of wound debrided: 50 Instrument Used: - - gauze Tissue Removed: yellow slough, devitalized tissue Severity: Fat Layer Exposed Amount of bleeding with debridement: Mild Bleeding Controlled with: Pressure Patient tolerated procedure: Patient tolerated procedure well - Additional Wound Wound debrided: left thigh cluster Laterality: Left Type of Debridement: Selective debridement Anesthesia Used: 4% Lidocaine Solution Depth: Down to and including healthy tissue, in the subcutaneous layer Percentage of wound debrided: 50 Instrument Used: - - gauze Tissue Removed: yellow slough, devitalized tissue Severity: Fat Layer Exposed Amount of bleeding with debridement: Mild Bleeding Controlled with: Pressure Patient tolerated procedure: Patient tolerated procedure well - Additional Wound Wound debrided: Back cluster Laterality: Not Applicable Type of Debridement: Selective debridement Anesthesia Used: 4% Lidocaine Solution Depth: Down to and including healthy tissue, in the subcutaneous layer Percentage of wound debrided: 40 Instrument Used: - - gauze Tissue Removed: yellow slough, devitalized tissue Severity: Fat Layer Exposed Amount of bleeding with debridement: Mild Bleeding Controlled with: Pressure Patient tolerated procedure: Patient tolerated procedure well - Additional Wound Wound debrided: Facial cluster Laterality: Not Applicable Type of Debridement: Selective debridement Anesthesia Used: 4% Lidocaine Solution, 5% Lidocaine Gel Depth: Down to and including healthy tissue, in the subcutaneous layer Percentage of wound debrided: 80 Instrument Used: - - gauze Tissue Removed: yellow slough, devitalized tissue Severity: Fat Layer Exposed Amount of bleeding with debridement: Mild Bleeding Controlled with: Pressure Patient tolerated procedure: Patient tolerated procedure well - Additional Wound Wound debrided: left upper extremity cluster Laterality: Left Type of Debridement: Selective debridement Anesthesia Used: 4% Lidocaine Solution Depth: Down to and including healthy tissue, in the subcutaneous layer Percentage of wound debrided: 40 Instrument Used: - - gauze Tissue Removed: yellow slough, devitalized tissue Severity: Fat Layer Exposed Amount of bleeding with debridement: Mild Bleeding Controlled with: Compression and gauze Patient tolerated procedure: Patient tolerated procedure well - Additional Wound Wound debrided: RUE cluster Laterality: Right Type of Debridement: Selective debridement Anesthesia Used: 4% Lidocaine Solution Depth: Down to and including healthy tissue, in the subcutaneous layer Percentage of wound debrided: 40 Instrument Used: - - gauze Tissue Removed: yellow slough, devitalized tissue Severity: Fat Layer Exposed Amount of bleeding with debridement: Mild Bleeding Controlled with: Pressure Patient tolerated procedure: Patient tolerated procedure well - Additional Wound Wound debrided: left chest Laterality: Left Type of Debridement: Selective debridement Anesthesia Used: 4% Lidocaine Solution Depth: Down to and including healthy tissue, in the subcutaneous layer Percentage of wound debrided: 100 Instrument Used: - - gauze Tissue Removed: yellow slough, devitalized tissue Amount of bleeding with debridement: Mild Bleeding Controlled with: Pressure Patient tolerated procedure: Patient tolerated procedure well - Additional Wound Wound debrided: abdominal cluster Laterality: Not Applicable Type of Debridement: Selective debridement Anesthesia Used: 4% Lidocaine Solution Depth: Down to and including healthy tissue, in the subcutaneous layer Percentage of wound debrided: 70 Instrument Used: - - gauze Tissue Removed: yellow slough, devitalized tissue Severity: Fat Layer Exposed Amount of bleeding with debridement: Mild Bleeding Controlled with: Pressure Patient tolerated procedure: Patient tolerated procedure well Assessment/Plan Active 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 DVT on anticoagulation with eliquis. Plan: Debridement done as documented above, procedure was well tolerated. Aquacel extra over Adaptic to areas of heavy drainage and xeroform over areas of erythema. Change daily to twice daily depending on drainage. He requires HH due to extensive nature of ulcers. Increased protein intake is recommended. His questions were answered and he was advised to call with any questions or concerns. F/U in 1-2 weeks.
== END 2019-06-18 23:59 ==
LOC: WC 15:30
PROVIDERS: PCP Family Medicine; Referring Provider Internal Medicine; Visit Provider Internal Medicine
DX: L98.491 Non-pressure chronic ulcer of skin of other sites limited to breakdown of skin (principal); Z86.718 Personal history of other venous thrombosis and embolism; Z79.01 Long term (current) use of anticoagulants; C84.A0 Cutaneous T-cell lymphoma, unspecified, unspecified site; M32.9 Systemic lupus erythematosus, unspecified; L97.122 Non-pressure chronic ulcer of left thigh with fat layer exposed; L97.112 Non-pressure chronic ulcer of right thigh with fat layer exposed; L98.422 Non-pressure chronic ulcer of back with fat layer exposed; L98.492 Non-pressure chronic ulcer of skin of other sites with fat layer exposed
CPT/HCPCS: 97597; 97598

== ENCOUNTER 2019-08-09 08:28 | Outpatient (RCR) | payer MEDICARE, OTHER, SELFPAY ==
[2019-06-19 00:53] VITALS: BP 148/76; PULSE 82; RESP 18; TEMP 37.2
--- NOTE | 2019-08-09 | IMM_PTH ---
PATIENT: CHIRAG WILSON LOC: U#:[id number] AGE/SX: 69/M ROOM: RE08/09/[address]: Dr. Gabrielle Vaughn DO : 1950 BED: DIS: 08/18/2019 SPEC #: [id number] RECD: 08/14/19 12:40 STATUS: SOUJesus REQ #: [id number] BENJA: 08/09/19 00:[address]: Gabrielle Vaughn DEPT: IMMUNOHISTOCHEMISTRY RECD BY: Kylie Mcmillan ENTERED: 08/14/19 12:43 SP TYPE: IMMUNO OTHR DR: MD Dr. Nasir Sprague MD Tissues: Skin of abdomen, NOS Procedures: BCL-2 (add) BCL-6 (add) CD10 (add) CD20 (add) CD23 (add) CD43 (add) CD45 (add) CD5 (add) CD79A (add) CYCLIN (add) KI-67 (add) CD3 (initial) PHYSICIAN & [address] [address] SPECIMEN INFORMATION: Tissue Source: Left lateral abdomen Clinical Info: Cutaneous T-cell lymphoma vs vasculitis Specimen Number: [id number] CPT code: 13023, 44935 x11 METHODOLOGY: Deparaffinized sections of prefer/formalin-fixed tissue or PAP/DQ stained slides are incubated with monoclonal/polyclonal antibodies/oligonucleotide probes. Localization is made via biotin free immunoperoxidase method. Appropriate controls are performed and reacted as expected. Results on target cell population are indicated in the following table: RESULTS: ANTIBODY / CLONE RESULT CD3 (PS1) positive CD5 (SP10) positive (reduced in number) CD10 (56C6) negative CD20 (L26) negative CD23 (1B12) negative CD43 (L60) positive CD45 (RP2/18) positive CD79a (11E3) negative BCL-2 (bcl-2/100/D5) positive BCL-6 (JJ219V/A8) negative Cyclin D1/BCL-1 (SP4) negative Ki-67 (30-9) positive (~ 40%) These tests were developed and their performance characteristics determined by [facility]. They may not have been cleared or approved by the U.S. Food and Drug Administration. The FDA has determined that such clearance or approval is not necessary. The above immunohistochemical/dualISH markers are ordered and reviewed by the Pathologist. INTERPRETATION: Left lateral abdomen, punch biopsy: Mature (post-thymic) cutaneous T-cell lymphoma. SJ:rg 08/21/19 Additional Immunohistochemical stains performed at [facility] supports the above diagnosis. The specimen is [facility] and reviewed by Dr. Aguirre and above diagnosis is rendered. Case has been reviewed in consultation with Dr. Thompson who concurs with the above diagnosis. IDC:AM
[2019-08-09 08:45] VITALS: BP 129/61; PULSE 75; RESP 16; TEMP 36.8; BMI 35.4
--- NOTE | 2019-08-09 09:50 | LES_PTH ---
PATIENT: CHIRAG WILSON LOC: U#:[id number] AGE/SX: 69/M ROOM: RE08/09/[address]: Dr. Gabrielle Vaughn DO : 1950 BED: DIS: 08/18/2019 SPEC #: [id number] RECD: 08/09/19 15:05 STATUS: MICAH REMarquise #: [id number] BENJA: 08/09/19 09:[address]: Gabrielle Vaughn DEPT: SURGICAL PATHOLOGY RECD BY: Andrea Corea ENTERED: 08/13/19 08:43 SP TYPE: Lesion OTHR DR: MD Dr. Nasir Sprague MD Tissues: Skin of abdomen, NOS Procedures: Gen Path Consultation (on slides) Surgery Specimen Level IV HEADER OPERATION: Punch biopsy left lateral abdominal lesion PRE-OP DIAGNOSIS: Cutaneous T-cell lymphoma vs vasculitis TISSUE SUBMITTED: Left lateral abdomen MICROSCOPIC DIAGNOSIS Skin, lateral abdomen, punch biopsy: Mature (post-thymic) cutaneous T-cell lymphoma (CD2 negative, CD3 positive, CD5 negative, CD8 positive, CD56 positive, TIA-1 positive and granzyme B positive). See comment. SJ:blade 08/21/19 COMMENT Skin with atypical lymphoid infiltrate of mostly small lymphoid cells with focally prominent epidermotropism. No sheets of large transformed cells are noted. Tumor cells (T-cells) are positive for CD3, CD7, CD8, TIA-1, granzyme B, and CD56. There is aberrant loss of CD2 and CD5 expression. Findings are diagnostic of mature T-cell lymphoma. Diagnostic considerations include (but are not limited to) primary cutaneous CD8 positive aggressive epidermotropic cytotoxic T-cell lymphoma. The location of lymphomatous infiltrate mostly in the upper dermis, phenotype and cytomorphology do not favor the diagnosis of subcutaneous folliculitis like T-cell lymphoma. Location on lateral abdomen does not favor the diagnosis of primary cutaneous acral CD8 positive T-cell lymphoma (which are mostly located on head, especially ears). Lack of CD2 and SUNSHINE expression excludes the diagnosis of extranodal NK/T-cell lymphoma, nasal type. Blastic markers (TdT and CD34) are negative excluding the diagnosis of T-lymphoblastic lymphoma. Positive CD3 and CD8 and lack of CD4 expression excludes BPDCN. Mycosis fungoides cases are mostly CD4 positive and therefore this diagnosis is not favored by immunohistochemistry analysis. Lack of CD4 and CD25 expression excludes the diagnosis of adult T-cell lymphoma and leukemia (ATLL). Lack of CD30 expression excludes the diagnosis of ALCL. A positive control for each antibody has been reviewed and accepted. A negative control and a positive control for each SKYLER stain have been reviewed and accepted. The specimen is sent to [facility] for expert opinion and reviewed by Dr. Menchaca and the above diagnosis is rendered. Immunohistochemistry performed here at [facility] and also additional immunohistochemical stains performed at [facility] supports the above diagnosis. The complete report is viewable in patient's EMR. Case has been reviewed in consultation with Dr. Thompson who concurs with the above diagnosis. IDC:AM MICROSCOPIC DESCRIPTION Slides are reviewed. GROSS DESCRIPTION Received is one container labeled with the patient's name and not further designated. The specimen consists of two fragments of light juarez soft tissue that in aggregate measure 0.6 x 0.2 x 0.1 cm. The specimen is totally submitted in one cassette. / AM:blade 08/13/19 TC:0 CPT: 05894, 18637
--- NOTE | 2019-08-09 18:40 | HP.PCM_ITS ---
(1) Cutaneous T-cell lymphoma Status: Chronic Current Visit: Yes Qualifiers: Lymphoma site: multiple regions Qualified Code(s): C84.A8 - Cutaneous T- cell lymphoma, unspecified, lymph nodes of multiple sites Code(s): C84.A0 - Cutaneous T-cell lymphoma, unspecified, unspecified site (2) Skin ulcer Status: Chronic Current Visit: Yes Qualifiers: Non-pressure ulcer stage: with fat layer exposed Code(s): L98.499 - Non-pressure chronic ulcer of skin of other sites with unspecified severity Comment: Multiple sites/ Generalized. History of Present Illness Date of Service: 08/09/19 Chief Complaint: Nonhealing skin ulcer History of Wound: Mr. Saunders is a 68-year-old who presents to the wound center due to nonhealing almost generalized skin ulcer. He was diagnosed with cutaneous T-cell lymphoma and has been in management for about 18 months. 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 Over the months, he has used Xeroform and an absorptive dressing without any significant improvement. Reports significant drainage from all ulcer sites. Also currently on Eliquis due to deep vein thrombosis with subsequent easy bleeding. He feels well otherwise. Denies chills, fever. Currently undergoing chemotherapy as well and follows up at [facility]. Past Medical History Past Medical History: Chronic Problems Cutaneous T-cell lymphoma (Chronic) Skin ulcer (Chronic) Multiple sites/ Generalized. Allergies/Adverse Reactions: Allergies cephalexin Allergy (Verified 08/09/19 09:01) Hives Home Medications: Ambulatory Orders Medication Instructions Recorded Acyclovir [Zovirax] 400 mg PO DAILY 05/16/19 Atorvastatin Calcium [Lipitor] 10 mg PO QHS 05/16/19 DiphenhydrAMINE [Benadryl] 50 mg PO BID PRN PRN 05/16/19 Doxycycline 100 mg PO BID 05/16/19 Finasteride [Proscar] 5 mg PO DAILY 05/16/19 Gabapentin 1,200 mg PO BID 05/16/19 Levothyroxine Sodium [Synthroid] 50 mcg PO DAILY 05/16/19 Tamsulosin HCl [Flomax] 0.4 mg PO DAILY 05/16/19 Montelukast [Singulair] 10 mg PO DAILY 08/09/19 Rivaroxaban [Xarelto] mg PO DAILY 08/09/19 Romidepsin 10 mg IV QWEEK 08/09/19 Lives: Spouse/ Significant Other Smoking Status: Never smoker Tobacco Use: Non-smoker Alcohol: None Drugs: None Review of Systems Constitutional: Denies: Chills, Fever, Weight Change Eyes: Denies: Pain, Vision Change HEENT: Denies: Difficulty Hearing, Difficulty Swallowing, Sinus Congestion Cardiovascular: Denies: Chest Pain, Palpitations Respiratory: Denies: Cough, Shortness of Breath Gastrointestinal: Denies: Diarrhea, Nausea, Vomiting Skin: Reports: Lesions, Rash, Wounds Endocrine: Denies: Heat/ Cold Intolerance, Polydipsia, Polyuria Hematologic/ Lymphatic: Reports: Easy Bruising, Easy Bleeding - Physical Exam Vital Signs Temp Pulse Resp BP 98.3 F 75 16 129/61 H 08/09/19 08:45 08/09/19 08:45 08/09/19 08:45 08/09/19 08:45 General: Alert, Oriented x3, Cooperative, No apparent distress HEENT: Atraumatic, Normocephalic Oral: Moist Mucosa Abdomen: Soft, Non Tender, Obese Extremities: No edema Skin: Ulcer/ Wound Wound Measurements and Assessment WC - Nurse 1 - General Ulcer Measurement Start: 08/09/19 08:40 Freq: Status: Active Protocol: Activity Type Activity Date Activity User E-Sign Co-Sign Detail Recorded Client Recorded Date Recorded By Document 08/09/19 08:45 [facility] [id number] 08/09/19 09:01 [facility] 08/09/19 08:45 Wound Center Nurse 1 [Ulcer Assessment] #16 L MID THIGH (CTCL) -Combined with other wound No -Current Size (cm) - Length 3 -Current Size (cm) - Width 2.5 -Current Size (cm) - Depth 0.1 -Total Square Cm 7.5 -Date of Last Picture (Recall this 08/09/19 field) -Photo Taken Yes -Epithelialization None Present -Tunneling No -Undermining/Tunneling No -Circular Undermining No -Exudate Amt Small -Exudate Type Serosanguineous -Wound Margin Flat & Intact -Granulation Amt Large (67-100%) -Granulation Quality Red -Slough/Fibrin Yes -Necrosis Amt Small (1-33%) -Necrotic Tissue Type Adherent Slough -Texture (Adele-wound Skin Appearance) Assessed, Scarring -Moisture (Adele-wound Skin Appearance Assessed,Dry/ ) Scaly -Color (Adele-wound Skin Appearance) Assessed, Erythema -Temperature (Adele-wound Skin No Abnormality Appearance) (Pt Warm) -Tenderness on Palpation (Adele-wound No Skin Appearance) -Ulcer Cleansing Rinsed/ Irrigated with Saline -Foul Odor after Cleansing No -Anesthetic Used 4% Lidocaine Solution #15- L LATERAL THIGH (CTCL) -Combined with other wound No -Current Size (cm) - Length 1.5 -Current Size (cm) - Width 1.5 -Current Size (cm) - Depth 0.1 -Total Square Cm 2.25 -Date of Last Picture (Recall this 08/09/19 field) -Photo Taken Yes -Epithelialization None Present -Tunneling No -Undermining/Tunneling No -Circular Undermining No -Exudate Amt Small -Exudate Type Serosanguineous -Wound Margin Flat & Intact -Granulation Amt Large (67-100%) -Granulation Quality Red -Slough/Fibrin Yes -Necrosis Amt Small (1-33%) -Necrotic Tissue Type Adherent Slough -Texture (Adele-wound Skin Appearance) Assessed, Scarring -Moisture (Adele-wound Skin Appearance Assessed,Dry/ ) Scaly -Color (Adele-wound Skin Appearance) Assessed, Erythema -Temperature (Adele-wound Skin No Abnormality Appearance) (Pt Warm) -Tenderness on Palpation (Adele-wound No Skin Appearance) -Ulcer Cleansing Rinsed/ Irrigated with Saline -Foul Odor after Cleansing No -Anesthetic Used 4% Lidocaine Solution #14- R KNEE CLUSTER (CTCL) -Combined with other wound No -Current Size (cm) - Length 6.5 -Current Size (cm) - Width 6.5 -Current Size (cm) - Depth 0.1 -Total Square Cm 42.25 -Date of Last Picture (Recall this 08/09/19 field) -Photo Taken Yes -Epithelialization None Present -Tunneling No -Undermining/Tunneling No -Circular Undermining No -Exudate Amt Small -Exudate Type Serosanguineous -Wound Margin Flat & Intact -Granulation Amt Large (67-100%) -Granulation Quality Red -Slough/Fibrin Yes -Necrosis Amt Small (1-33%) -Necrotic Tissue Type Adherent Slough -Texture (Adele-wound Skin Appearance) Assessed, Scarring -Moisture (Adele-wound Skin Appearance Assessed,Dry/ ) Scaly -Color (Adele-wound Skin Appearance) Assessed, Erythema -Temperature (Adele-wound Skin No Abnormality Appearance) (Pt Warm) -Tenderness on Palpation (Adele-wound No Skin Appearance) -Ulcer Cleansing Rinsed/ Irrigated with Saline -Foul Odor after Cleansing No -Anesthetic Used 4% Lidocaine Solution #13 R UPPER ABDOMEN (CTCL) -Combined with other wound No -Current Size (cm) - Length 3 -Current Size (cm) - Width 5 -Current Size (cm) - Depth 0.1 -Total Square Cm 15 -Date of Last Picture (Recall this 08/09/19 field) -Photo Taken Yes -Epithelialization None Present -Tunneling No -Undermining/Tunneling No -Circular Undermining No -Exudate Amt None Present -Wound Margin Flat & Intact -Granulation Amt Large (67-100%) -Granulation Quality Red -Slough/Fibrin Yes -Necrosis Amt Small (1-33%) -Necrotic Tissue Type Adherent Slough -Texture (Adele-wound Skin Appearance) Assessed, Scarring -Moisture (Adele-wound Skin Appearance Assessed,Dry/ ) Scaly -Color (Adele-wound Skin Appearance) Assessed, Erythema -Temperature (Adele-wound Skin No Abnormality Appearance) (Pt Warm) -Tenderness on Palpation (Adele-wound No Skin Appearance) -Ulcer Cleansing Rinsed/ Irrigated with Saline -Foul Odor after Cleansing No -Anesthetic Used 4% Lidocaine Solution #12- L LATERAL ABDOMEN (CTCL) -Combined with other wound No -Current Size (cm) - Length 5.5 -Current Size (cm) - Width 7 -Current Size (cm) - Depth 0.1 -Total Square Cm 38.5 -Date of Last Picture (Recall this 08/09/19 field) -Photo Taken Yes -Epithelialization None Present -Tunneling No -Undermining/Tunneling No -Circular Undermining No -Exudate Amt None Present -Wound Margin Flat & Intact -Granulation Amt Large (67-100%) -Granulation Quality Red -Slough/Fibrin Yes -Necrosis Amt Small (1-33%) -Necrotic Tissue Type Adherent Slough -Texture (Adele-wound Skin Appearance) Assessed, Scarring -Moisture (Adele-wound Skin Appearance Assessed,Dry/ ) Scaly -Color (Adele-wound Skin Appearance) Assessed, Erythema -Temperature (Adele-wound Skin No Abnormality Appearance) (Pt Warm) -Tenderness on Palpation (Adele-wound No Skin Appearance) -Ulcer Cleansing Rinsed/ Irrigated with Saline -Foul Odor after Cleansing No -Anesthetic Used 4% Lidocaine Solution #11- UMBILICUS (CTCL) -Combined with other wound No -Current Size (cm) - Length 4 -Current Size (cm) - Width 7 -Current Size (cm) - Depth 0.1 -Total Square Cm 28 -Date of Last Picture (Recall this 08/09/19 field) -Photo Taken Yes -Epithelialization None Present -Tunneling No -Undermining/Tunneling No -Circular Undermining No -Exudate Amt Small -Exudate Type Serosanguineous -Wound Margin Flat & Intact -Granulation Amt Small (1-33%) -Granulation Quality Red -Slough/Fibrin Yes -Necrosis Amt Large (67-100%) -Necrotic Tissue Type Adherent Slough -Texture (Adele-wound Skin Appearance) Assessed, Friable, Scarring -Moisture (Adele-wound Skin Appearance Assessed ) -Color (Adele-wound Skin Appearance) Assessed, Erythema -Temperature (Adele-wound Skin No Abnormality Appearance) (Pt Warm) -Tenderness on Palpation (Adele-wound Yes Skin Appearance) -Ulcer Cleansing Rinsed/ Irrigated with Saline -Foul Odor after Cleansing No -Anesthetic Used 4% Lidocaine Solution WC - Nurse 2 - General Ulcer CM Notes Start: 08/09/19 08:40 Freq: Status: Active Protocol: Activity Type Activity Date Activity User E-Sign Co-Sign Detail Recorded Client Recorded Date Recorded By Document 08/09/19 09:46 DV [id number] 08/09/19 10:08 DV 08/09/19 09:46 Wound Center Nurse 2 [Procedure/Treatment] #16 L MID THIGH (CTCL) -Time 10:01 -Correct Patient Yes -Correct Side, Site, Position Yes -Correct Procedure No -Procedure Performed No -Wound/Ulcer Outcome Not Healed #15- L LATERAL THIGH (CTCL) -Time 10:01 -Correct Patient Yes -Correct Side, Site, Position Yes -Correct Procedure No -Procedure Performed No -Wound/Ulcer Outcome Not Healed #14- R KNEE CLUSTER (CTCL) -Time 10:02 -Correct Patient Yes -Correct Side, Site, Position Yes -Correct Procedure No -Procedure Performed No -Wound/Ulcer Outcome Not Healed #13 R UPPER ABDOMEN (CTCL) -Time 10:05 -Correct Patient Yes -Correct Side, Site, Position Yes -Correct Procedure No -Procedure Performed No -Wound/Ulcer Outcome Not Healed #12- L LATERAL ABDOMEN (CTCL) -Time 10:06 -Correct Patient Yes -Correct Side, Site, Position Yes -Correct Procedure No -Procedure Performed No -Wound/Ulcer Outcome Not Healed #11- UMBILICUS (CTCL) -Time 10:06 -Correct Patient Yes -Correct Side, Site, Position Yes -Correct Procedure No -Procedure Performed No -Wound/Ulcer Outcome Not Healed [See Physician Procedure note for Specifics] Pain Scale: 0-10 Numeric [Pain] -Is Patient Pain Free? Yes Psych/Mental Status: Normal Affect, Appropriate Debridement Note Post-Debridement Measurements/Treatment WC - Nurse 2 - General Ulcer CM Notes Start: 08/09/19 08:40 Freq: Status: Active Protocol: Activity Type Activity Date Activity User E-Sign Co-Sign Detail Recorded Client Recorded Date Recorded By Document 08/09/19 09:46 DV [id number] 08/09/19 10:08 DV 08/09/19 09:46 Wound Center Nurse 2 #16 L MID THIGH (CTCL) -Time 10:01 -Correct Patient Yes -Correct Side, Site, Position Yes -Correct Procedure No -Procedure Performed No -Wound/Ulcer Outcome Not Healed #15- L LATERAL THIGH (CTCL) -Time 10:01 -Correct Patient Yes -Correct Side, Site, Position Yes -Correct Procedure No -Procedure Performed No -Wound/Ulcer Outcome Not Healed #14- R KNEE CLUSTER (CTCL) -Time 10:02 -Correct Patient Yes -Correct Side, Site, Position Yes -Correct Procedure No -Procedure Performed No -Wound/Ulcer Outcome Not Healed #13 R UPPER ABDOMEN (CTCL) -Time 10:05 -Correct Patient Yes -Correct Side, Site, Position Yes -Correct Procedure No -Procedure Performed No -Wound/Ulcer Outcome Not Healed #12- L LATERAL ABDOMEN (CTCL) -Time 10:06 -Correct Patient Yes -Correct Side, Site, Position Yes -Correct Procedure No -Procedure Performed No -Wound/Ulcer Outcome Not Healed #11- UMBILICUS (CTCL) -Time 10:06 -Correct Patient Yes -Correct Side, Site, Position Yes -Correct Procedure No -Procedure Performed No -Wound/Ulcer Outcome Not Healed Pain Scale: 0-10 Numeric Is Patient Pain Free? Yes No debridement was completed today - to any of his ulcers - punch biopsy performed to left lateral abdomen as below Assessment/Plan Active Problems Cutaneous T-cell lymphoma (Chronic) Skin ulcer (Chronic) Multiple sites/ Generalized. 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 DVT on anticoagulation with eliquis. Plan: Evaluation of ulcers as documented above. Left abdominal ulcer has changed in appearance and is more purplish and plaque-like. Punch biopsy performed to evaluate and confirm continued etiology. Area anesthetized with 1% lidocaine with epinephrine and 3 mm punch used to sample lesion at 1 oclock and 2 oclock areas of lesion. Scissors and forceps used to elevate and excise biopsy form base. Bleeding controlled with silver nitrate. Punch biopsy performed of left lateral abdominal ulcer, procedure was well tolerated. Wound culture taken. Aquacel extra over Adaptic to areas of heavy drainage and xeroform over areas of erythema. Hydrofera blue to left lateral abdomen ulcer for heavy drainage. Change daily to twice daily depending on drainage. He requires HH due to extensive nature of ulcers. Increased protein intake is recommended. His questions were answered and he was advised to call with any questions or concerns. F/U in 2 weeks.
[2019-08-14 17:30] LABS: M R Staph aureus DNA By PCR Negative (Negative); Probe Check PASS; Staph aureus DNA By PCR NEGATIVE (Negative)
--- NOTE | 2019-08-19 09:46 | WC ---
prescription for ciprofloxacin 500mg called into [facility] and patient notified and instructed to take 1 tablet 2x per day for 10 days. Patient is also informed of tissue biopsy that was sent out and will not have results for at least 7-10 days.
== END 2019-08-18 23:59 ==
LOC: WC 08:28
PROVIDERS: PCP Family Medicine; Referring Provider Family Medicine; Visit Provider Family Medicine
DX: L97.122 Non-pressure chronic ulcer of left thigh with fat layer exposed (principal); L97.812 Non-pressure chronic ulcer of other part of right lower leg with fat layer exposed; L98.492 Non-pressure chronic ulcer of skin of other sites with fat layer exposed; C86.6 Primary cutaneous CD30-positive T-cell proliferations; Z86.718 Personal history of other venous thrombosis and embolism; Z79.02 Long term (current) use of antithrombotics/antiplatelets
CPT/HCPCS: 11104; 87070; 87075; 87077; 87186; 87205; 87640; 88305; 88325; 88341; 88342; 99214; G0463

== ENCOUNTER 2019-09-13 08:30 | Outpatient (RCR) | payer MEDICARE, OTHER, SELFPAY ==
[2019-08-19 00:16] VITALS: BP 129/61; PULSE 75; RESP 16; TEMP 36.8
[2019-08-23 08:39] VITALS: RESP 18; TEMP 36.6; BMI 35.4
--- NOTE | 2019-08-23 16:57 | PCM.WC.PN ---
(1) Cutaneous T-cell lymphoma Status: Chronic Qualifiers: Lymphoma site: multiple regions Qualified Code(s): C84.A8 - Cutaneous T-cell lymphoma, unspecified, lymph nodes of multiple sites Code(s): C84.A0 - Cutaneous T-cell lymphoma, unspecified, unspecified site (2) Skin ulcer Status: Chronic Qualifiers: Non-pressure ulcer stage: with fat layer exposed Code(s): L98.499 - Non-pressure chronic ulcer of skin of other sites with unspecified severity Comment: Multiple sites/ Generalized. Type of Wound Date of Service: 08/30/19 Chief Complaint: Nonhealing skin ulcer History of Wound: Mr. Saunders is a 68-year-old who presents to the wound center due to nonhealing almost generalized skin ulcer. He was diagnosed with cutaneous T-cell lymphoma and has been in management for about 18 months. 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 Over the months, he has used Xeroform and an absorptive dressing without any significant improvement. Reports significant drainage from all ulcer sites. Also currently on Eliquis due to deep vein thrombosis with subsequent easy bleeding. He feels well otherwise. Denies chills, fever. Currently undergoing chemotherapy as well and follows up at [facility]. Progress of Wound: He has noted some improvement in his ulcers. Wound culture was positive for Pseudomonas, Klebsiella and anaerobic cocci and was started on antibiotic for treatment with Ciprofloxacin and Flagyl. He istolerating these well. 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 He continues to use Aquacel Ag to some and iodoform to others. Some ulcers drain heavily, especially the ones on his abdomen and his right thigh. He denies fever, chills, erythema. - Physical Exam Vital Signs Temp Pulse Resp BP 98 F 75 18 129/61 H 08/23/19 08:39 08/19/19 00:16 08/23/19 08:39 08/19/19 00:16 General: Alert, Oriented x3, Cooperative, No apparent distress HEENT: Atraumatic, Normocephalic Oral: Moist Mucosa Abdomen: Soft, Non Tender Extremities: Edema Skin: Ulcer/ Wound Wound Measurements and Assessment WC - Nurse 1 - General Ulcer Measurement Start: 08/23/19 08:39 Freq: Status: Active Protocol: Activity Type Activity Date Activity User E-Sign Co-Sign Detail Recorded Client Recorded Date Recorded By Document 08/23/19 08:39 [facility] [id number] 08/23/19 08:58 [facility] 08/23/19 08:39 Wound Center Nurse 1 [Ulcer Assessment] #16 L MID THIGH (CTCL) -Combined with other wound No -Current Size (cm) - Length 1.1 -Current Size (cm) - Width 0.5 -Current Size (cm) - Depth 0.1 -Total Square Cm 0.55 -Photo Taken No -Epithelialization None Present -Tunneling No -Undermining/Tunneling No -Circular Undermining No -Exudate Amt Small -Exudate Type Serosanguineous -Wound Margin Flat & Intact -Granulation Amt Medium (34-66%) -Granulation Quality Red -Slough/Fibrin Yes -Necrosis Amt Medium (34-66%) -Necrotic Tissue Type Adherent Slough -Texture (Adele-wound Skin Appearance) Assessed, Scarring -Moisture (Adele-wound Skin Appearance Assessed,Dry/ ) Scaly -Color (Adele-wound Skin Appearance) Assessed, Erythema -Temperature (Adele-wound Skin No Abnormality Appearance) (Pt Warm) -Tenderness on Palpation (Adele-wound No Skin Appearance) -Ulcer Cleansing Rinsed/ Irrigated with Saline -Foul Odor after Cleansing No -Anesthetic Used 4% Lidocaine Solution #15- L LATERAL THIGH (CTCL) -Combined with other wound No -Current Size (cm) - Length 1.9 -Current Size (cm) - Width 1 -Current Size (cm) - Depth 0.1 -Total Square Cm 1.9 -Photo Taken No -Epithelialization None Present -Tunneling No -Undermining/Tunneling No -Circular Undermining No -Exudate Amt Small -Exudate Type Serous -Wound Margin Flat & Intact -Granulation Amt Medium (34-66%) -Granulation Quality Red -Slough/Fibrin Yes -Necrosis Amt Medium (34-66%) -Necrotic Tissue Type Adherent Slough -Texture (Adele-wound Skin Appearance) Assessed, Scarring -Moisture (Adele-wound Skin Appearance Assessed,Dry/ ) Scaly -Color (Adele-wound Skin Appearance) Assessed, Erythema -Temperature (Adele-wound Skin No Abnormality Appearance) (Pt Warm) -Tenderness on Palpation (Adele-wound No Skin Appearance) -Ulcer Cleansing Rinsed/ Irrigated with Saline -Foul Odor after Cleansing No -Anesthetic Used 4% Lidocaine Solution #14- R KNEE CLUSTER (CTCL) -Combined with other wound No -Current Size (cm) - Length 4 -Current Size (cm) - Width 2 -Current Size (cm) - Depth 0.1 -Total Square Cm 8 -Photo Taken No -Epithelialization None Present -Tunneling No -Undermining/Tunneling No -Circular Undermining No -Exudate Amt Small -Exudate Type Serous -Wound Margin Flat & Intact -Granulation Amt Medium (34-66%) -Granulation Quality Red -Slough/Fibrin Yes -Necrosis Amt Medium (34-66%) -Necrotic Tissue Type Adherent Slough -Texture (Adele-wound Skin Appearance) Assessed, Scarring -Moisture (Adele-wound Skin Appearance Assessed,Dry/ ) Scaly -Color (Adele-wound Skin Appearance) Assessed, Erythema -Temperature (Adele-wound Skin No Abnormality Appearance) (Pt Warm) -Tenderness on Palpation (Adele-wound No Skin Appearance) -Ulcer Cleansing Rinsed/ Irrigated with Saline -Foul Odor after Cleansing No -Anesthetic Used 4% Lidocaine Solution #13 R UPPER ABDOMEN (CTCL) -Combined with other wound No -Current Size (cm) - Length 0.6 -Current Size (cm) - Width 6.2 -Current Size (cm) - Depth 0.3 -Total Square Cm 3.72 -Photo Taken No -Epithelialization None Present -Tunneling No -Undermining/Tunneling No -Circular Undermining No -Exudate Amt Small -Exudate Type Serous -Wound Margin Distinct, Outline Attached -Granulation Amt Medium (34-66%) -Granulation Quality Red -Slough/Fibrin Yes -Necrosis Amt Medium (34-66%) -Necrotic Tissue Type Adherent Slough -Texture (Adele-wound Skin Appearance) Assessed, Scarring -Moisture (Adele-wound Skin Appearance Assessed,Dry/ ) Scaly -Color (Adele-wound Skin Appearance) Assessed, Erythema -Temperature (Adele-wound Skin No Abnormality Appearance) (Pt Warm) -Tenderness on Palpation (Adele-wound No Skin Appearance) -Ulcer Cleansing Rinsed/ Irrigated with Saline -Foul Odor after Cleansing No -Anesthetic Used 4% Lidocaine Solution #12- L LATERAL ABDOMEN (CTCL) -Combined with other wound No -Current Size (cm) - Length 3.8 -Current Size (cm) - Width 6.2 -Current Size (cm) - Depth 0.3 -Total Square Cm 23.56 -Photo Taken No -Epithelialization None Present -Tunneling No -Undermining/Tunneling No -Circular Undermining No -Exudate Amt Small -Exudate Type Serous -Wound Margin Distinct, Outline Attached -Granulation Amt Medium (34-66%) -Granulation Quality Red -Slough/Fibrin Yes -Necrosis Amt Small (1-33%) -Necrotic Tissue Type Adherent Slough -Texture (Adele-wound Skin Appearance) Assessed, Scarring -Moisture (Adele-wound Skin Appearance Assessed,Dry/ ) Scaly -Color (Adele-wound Skin Appearance) Assessed, Erythema -Temperature (Adele-wound Skin No Abnormality Appearance) (Pt Warm) -Tenderness on Palpation (Adele-wound No Skin Appearance) -Ulcer Cleansing Rinsed/ Irrigated with Saline -Foul Odor after Cleansing No -Anesthetic Used 4% Lidocaine Solution #11- UMBILICUS (CTCL) -Combined with other wound No -Current Size (cm) - Length 1.1 -Current Size (cm) - Width 0.8 -Current Size (cm) - Depth 0.1 -Total Square Cm 0.88 -Photo Taken No -Epithelialization None Present -Tunneling No -Undermining/Tunneling No -Circular Undermining No -Exudate Amt Small -Exudate Type Serous -Wound Margin Distinct, Outline Attached -Granulation Amt Large (67-100%) -Granulation Quality Red -Slough/Fibrin Yes -Necrosis Amt Small (1-33%) -Necrotic Tissue Type Adherent Slough -Texture (Adele-wound Skin Appearance) Assessed, Scarring -Moisture (Adele-wound Skin Appearance Assessed,Dry/ ) Scaly -Color (Adele-wound Skin Appearance) Assessed, Erythema -Temperature (Adele-wound Skin No Abnormality Appearance) (Pt Warm) -Tenderness on Palpation (Adele-wound No Skin Appearance) -Ulcer Cleansing Rinsed/ Irrigated with Saline -Foul Odor after Cleansing No -Anesthetic Used 4% Lidocaine Solution WC - Nurse 2 - General Ulcer CM Notes Start: 08/23/19 08:39 Freq: Status: Active Protocol: Activity Type Activity Date Activity User E-Sign Co-Sign Detail Recorded Client Recorded Date Recorded By Document 08/23/19 09:08 DV [id number] 06/05/20 09:37 DV 08/23/19 09:08 Wound Center Nurse 2 [Procedure/Treatment] #15- [facility] TH[facility] -Time 09:31 -Correct Patient Yes -Correct Side, Site, Position Yes -Correct Procedure Yes -Procedure Performed Yes -Type of Procedure Debridement -Clinical Debridement Selective -Post Debridement Size (cm) - Length 2.0 -Post Debridement Size (cm) - Width 1.1 -Post Debridement Size (cm) - Depth 0.1 -Total Square Cm 2.20 -Wound/Ulcer Outcome Not Healed -Ulcer Cleansing Rinsed/ Irrigated with Saline -Foul Odor after Cleansing No -Bioengineered Tissue No -Bleeding Controlled with Pressure -Offloading No -Treatment Response Procedure Tolerated Well #14- R KNEE CLUSTER ([facility]) -Time 09:32 -Correct Patient Yes -Correct Side, Site, Position Yes -Correct Procedure Yes -Procedure Performed Yes -Type of Procedure Debridement -Clinical Debridement Selective -Post Debridement Size (cm) - Length 4.0 -Post Debridement Size (cm) - Width 2.5 -Post Debridement Size (cm) - Depth 0.1 -Total Square Cm 10.00 -Wound/Ulcer Outcome Not Healed -Ulcer Cleansing Rinsed/ Irrigated with Saline -Foul Odor after Cleansing No -Bioengineered Tissue No -Bleeding Controlled with Pressure -Offloading No -Treatment Response Procedure Tolerated Well #13 R UPPER ABDOMEN ([facility]) -Time 09:32 -Correct Patient Yes -Correct Side, Site, Position Yes -Correct Procedure Yes -Procedure Performed Yes -Type of Procedure Debridement -Clinical Debridement Selective -Post Debridement Size (cm) - Length 1.0 -Post Debridement Size (cm) - Width 2.5 -Post Debridement Size (cm) - Depth 0.1 -Total Square Cm 2.50 -Wound/Ulcer Outcome Not Healed -Ulcer Cleansing Rinsed/ Irrigated with Saline -Foul Odor after Cleansing No -Bioengineered Tissue No -Bleeding Controlled with Pressure -Offloading No -Treatment Response Procedure Tolerated Well #12- L LATERAL ABDOMEN ([facility]) -Time 09:32 -Correct Patient Yes -Correct Side, Site, Position Yes -Correct Procedure Yes -Procedure Performed Yes -Type of Procedure Debridement -Clinical Debridement Selective -Post Debridement Size (cm) - Length 4.0 -Post Debridement Size (cm) - Width 7.0 -Post Debridement Size (cm) - Depth 0.3 -Total Square Cm 28.00 -Wound/Ulcer Outcome Not Healed -Ulcer Cleansing Rinsed/ Irrigated with Saline -Foul Odor after Cleansing No -Bioengineered Tissue No -Bleeding Controlled with Pressure -Offloading No -Treatment Response Procedure Tolerated Well [See Physician Procedure note for Specifics] Pain Scale: 0-10 Numeric [Pain] -Is Patient Pain Free? Yes Psych/Mental Status: Normal Affect, Appropriate Debridement Note Post-Debridement Measurements/Treatment WC - Nurse 2 - General Ulcer CM Notes Start: 08/23/19 08:39 Freq: Status: Active Protocol: Activity Type Activity Date Activity User E-Sign Co-Sign Detail Recorded Client Recorded Date Recorded By Document 08/23/19 09:08 DV [id number] 08/23/19 09:37 DV 08/23/19 09:08 Wound Center Nurse 2 #15- L LATERAL THIGH ([facility]) -Time 09:31 -Correct Patient Yes -Correct Side, Site, Position Yes -Correct Procedure Yes -Procedure Performed Yes -Type of Procedure Debridement -Clinical Debridement Selective -Post Debridement Size (cm) - Length 2.0 -Post Debridement Size (cm) - Width 1.1 -Post Debridement Size (cm) - Depth 0.1 -Total Square Cm 2.20 -Wound/Ulcer Outcome Not Healed -Ulcer Cleansing Rinsed/ Irrigated with Saline -Foul Odor after Cleansing No -Bioengineered Tissue No -Bleeding Controlled with Pressure -Offloading No -Treatment Response Procedure Tolerated Well #14- R KNEE CLUSTER ([facility]) -Time 09:32 -Correct Patient Yes -Correct Side, Site, Position Yes -Correct Procedure Yes -Procedure Performed Yes -Type of Procedure Debridement -Clinical Debridement Selective -Post Debridement Size (cm) - Length 4.0 -Post Debridement Size (cm) - Width 2.5 -Post Debridement Size (cm) - Depth 0.1 -Total Square Cm 10.00 -Wound/Ulcer Outcome Not Healed -Ulcer Cleansing Rinsed/ Irrigated with Saline -Foul Odor after Cleansing No -Bioengineered Tissue No -Bleeding Controlled with Pressure -Offloading No -Treatment Response Procedure Tolerated Well #13 R UPPER ABDOMEN ([facility]) -Time 09:32 -Correct Patient Yes -Correct Side, Site, Position Yes -Correct Procedure Yes -Procedure Performed Yes -Type of Procedure Debridement -Clinical Debridement Selective -Post Debridement Size (cm) - Length 1.0 -Post Debridement Size (cm) - Width 2.5 -Post Debridement Size (cm) - Depth 0.1 -Total Square Cm 2.50 -Wound/Ulcer Outcome Not Healed -Ulcer Cleansing Rinsed/ Irrigated with Saline -Foul Odor after Cleansing No -Bioengineered Tissue No -Bleeding Controlled with Pressure -Offloading No -Treatment Response Procedure Tolerated Well #12- L LATERAL ABDOMEN ([facility]) -Time 09:32 -Correct Patient Yes -Correct Side, Site, Position Yes -Correct Procedure Yes -Procedure Performed Yes -Type of Procedure Debridement -Clinical Debridement Selective -Post Debridement Size (cm) - Length 4.0 -Post Debridement Size (cm) - Width 7.0 -Post Debridement Size (cm) - Depth 0.3 -Total Square Cm 28.00 -Wound/Ulcer Outcome Not Healed -Ulcer Cleansing Rinsed/ Irrigated with Saline -Foul Odor after Cleansing No -Bioengineered Tissue No -Bleeding Controlled with Pressure -Offloading No -Treatment Response Procedure Tolerated Well Pain Scale: 0-10 Numeric Is Patient Pain Free? Yes Wound debrided: right knee cluster Laterality: Right Type of Debridement: Selective debridement Anesthesia Used: 4% Lidocaine Solution Depth: Down to and including healthy tissue, in the subcutaneous layer Percentage of wound debrided: 100 Instrument Used: - - gauze Tissue Removed: Yellow slough, devitalized tissue Severity: Fat Layer Exposed Amount of bleeding with debridement: Mild Bleeding Controlled with: Compression and gauze Patient tolerated procedure well - Additional Wound Wound debrided: left lateral thigh Laterality: Left Type of Debridement: Selective debridement Anesthesia Used: 4% Lidocaine Solution Depth: Down to and including healthy tissue, in the subcutaneous layer Percentage of wound debrided: 100 Instrument Used: - - gauze Tissue Removed: Yellow slough, devitalized tissue Severity: Fat Layer Exposed Amount of bleeding with debridement: Mild Bleeding Controlled with: Compression and gauze Patient tolerated procedure: Patient tolerated procedure well - Additional Wound Wound debrided: right upper abdomen Laterality: Right Type of Debridement: Excisional debridement Anesthesia Used: 4% Lidocaine Solution Depth: Down to and including healthy tissue, in the subcutaneous layer Percentage of wound debrided: 100 Instrument Used: - - gauze Tissue Removed: Yellow slough, devitalized tissue Severity: Fat Layer Exposed Amount of bleeding with debridement: Mild Bleeding Controlled with: Compression and gauze Patient tolerated procedure: Patient tolerated procedure well - Additional Wound Wound debrided: left lateral abdomen Laterality: Left Type of Debridement: Excisional debridement Anesthesia Used: 4% Lidocaine Solution Depth: Down to and including healthy tissue, in the subcutaneous layer Percentage of wound debrided: 100 Instrument Used: 5mm curette Tissue Removed: Yellow slough, devitalized tissue Severity: Fat Layer Exposed Amount of bleeding with debridement: Mild Bleeding Controlled with: Compression and gauze Patient tolerated procedure: Patient tolerated procedure well Assessment/Plan Assessment: 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 DVT on anticoagulation with eliquis. Plan: Evaluation of ulcers as documented above. Cutaneous lesions are stable and his left lateral abdomen is unchanged. Punch biopsy site is healing. He is also having increased lower extremity edema. Aquacel extra over Adaptic to areas of heavy drainage and xeroform over areas of erythema. Hydrofera blue to left lateral abdomen ulcer for heavy drainage. Change daily to twice daily depending on drainage. He requires HH due to extensive nature of ulcers. Increased protein intake is recommended. Prescription for furosemide given and encourage dto discuss edema with PCP. Also advised tubigrip treatment to control edema as well. His questions were answered and he was advised to call with any questions or concerns. F/U as needed.
[2019-09-13 08:38] VITALS: BP 153/77; PULSE 76; RESP 18; TEMP 36.6; BMI 35.4
--- NOTE | 2019-09-13 17:28 | PCM.WC.PN ---
(1) Cutaneous T-cell lymphoma Status: Chronic Qualifiers: Lymphoma site: unspecified region Qualified Code(s): C84.A0 - Cutaneous T-cell lymphoma, unspecified, unspecified site Code(s): C84.A0 - Cutaneous T-cell lymphoma, unspecified, unspecified site (2) Skin ulcer Status: Chronic Qualifiers: Non-pressure ulcer stage: with fat layer exposed Qualified Code(s): L98.492 - Non-pressure chronic ulcer of skin of other sites with fat layer exposed Code(s): L98.499 - Non-pressure chronic ulcer of skin of other sites with unspecified severity Comment: Multiple sites/ Generalized. Type of Wound Date of Service: 09/13/19 Chief Complaint: Nonhealing skin ulcer History of Wound: Mr. Saunders is a 68-year-old who presents to the wound center due to nonhealing almost generalized skin ulcer. He was diagnosed with cutaneous T-cell lymphoma and has been in management for about 18 months. 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 Over the months, he has used Xeroform and an absorptive dressing without any significant improvement. Reports significant drainage from all ulcer sites. Also currently on Eliquis due to deep vein thrombosis with subsequent easy bleeding. He feels well otherwise. Denies chills, fever. Currently undergoing chemotherapy as well and follows up at [facility]. Progress of Wound: He has noted some improvement in his ulcers. He completed antibiotics. 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 He continues to use Aquacel Ag to some and iodoform to others. Some ulcers drain heavily, especially the ones on his abdomen and his right thigh. He denies fever, chills, erythema. - Physical Exam Vital Signs Temp Pulse Resp BP 97.8 F 76 18 153/77 H 09/13/19 08:38 09/13/19 08:38 09/13/19 08:38 09/13/19 08:38 General: Alert, Oriented x3, Cooperative, No apparent distress HEENT: Atraumatic, Normocephalic Oral: Moist Mucosa Extremities: Edema Skin: Ulcer/ Wound Wound Measurements and Assessment WC - Nurse 1 - General Ulcer Measurement Start: 08/23/19 08:39 Freq: Status: Active Protocol: Activity Type Activity Date Activity User E-Sign Co-Sign Detail Recorded Client Recorded Date Recorded By Document 09/13/19 08:38 RB [id number] 09/13/19 09:00 RB 09/13/19 08:38 Wound Center Nurse 1 [Ulcer Assessment] #16 L MID THIGH (CTCL) -Combined with other wound No -Current Size (cm) - Length 4 -Current Size (cm) - Width 4 -Current Size (cm) - Depth 0.1 -Total Square Cm 16 -Tunneling No -Undermining/Tunneling No -Circular Undermining No -Exudate Amt Small -Exudate Type Serosanguineous -Wound Margin Flat & Intact -Granulation Amt Medium (34-66%) -Granulation Quality [place] -Slough/Fibrin Yes -Necrosis Amt Small (1-33%) -Necrotic Tissue Type Adherent Slough -Structure Exposed N/A -Texture (Adele-wound Skin Appearance) Assessed, Excoriation, Friable, Scarring -Moisture (Adele-wound Skin Appearance Assessed ) -Color (Adele-wound Skin Appearance) Assessed -Temperature (Adele-wound Skin No Abnormality Appearance) (Pt Warm) -Tenderness on Palpation (Adele-wound No Skin Appearance) -Ulcer Cleansing Wound Cleanser -Foul Odor after Cleansing No -Anesthetic Used 4% Lidocaine Solution #15- L LATERAL THIGH (CTCL) -Combined with other wound No -Current Size (cm) - Length 2 -Current Size (cm) - Width 2.5 -Current Size (cm) - Depth 0.1 -Total Square Cm 5.0 -Tunneling No -Undermining/Tunneling No -Circular Undermining No -Exudate Amt Small -Exudate Type Serosanguineous -Wound Margin Flat & Intact -Granulation Amt Medium (34-66%) -Granulation Quality [place] -Slough/Fibrin Yes -Necrosis Amt Small (1-33%) -Necrotic Tissue Type Adherent Slough -Structure Exposed N/A -Texture (Adele-wound Skin Appearance) Assessed, Excoriation, Friable, Scarring -Moisture (Adele-wound Skin Appearance Assessed ) -Color (Adele-wound Skin Appearance) Assessed -Temperature (Adele-wound Skin No Abnormality Appearance) (Pt Warm) -Tenderness on Palpation (Adele-wound No Skin Appearance) -Ulcer Cleansing Wound Cleanser -Foul Odor after Cleansing No -Anesthetic Used 4% Lidocaine Solution #14- R KNEE CLUSTER (CTCL) -Combined with other wound No -Current Size (cm) - Length 5 -Current Size (cm) - Width 6 -Current Size (cm) - Depth 0.1 -Total Square Cm 30 -Tunneling No -Undermining/Tunneling No -Circular Undermining No -Exudate Amt Small -Exudate Type Serosanguineous -Wound Margin Flat & Intact -Granulation Amt Medium (34-66%) -Granulation Quality [place] -Slough/Fibrin Yes -Necrosis Amt Small (1-33%) -Necrotic Tissue Type Adherent Slough -Structure Exposed N/A -Texture (Adele-wound Skin Appearance) Assessed, Excoriation, Friable, Scarring -Moisture (Adele-wound Skin Appearance Assessed ) -Color (Adele-wound Skin Appearance) Assessed -Temperature (Adele-wound Skin No Abnormality Appearance) (Pt Warm) -Tenderness on Palpation (Adele-wound No Skin Appearance) -Ulcer Cleansing Wound Cleanser -Foul Odor after Cleansing No -Anesthetic Used 4% Lidocaine Solution #13 R UPPER ABDOMEN (CTCL) -Combined with other wound No -Current Size (cm) - Length 1 -Current Size (cm) - Width 3 -Current Size (cm) - Depth 0.1 -Total Square Cm 3 -Tunneling No -Undermining/Tunneling No -Circular Undermining No -Exudate Amt Small -Exudate Type Serosanguineous -Wound Margin Flat & Intact -Granulation Amt Medium (34-66%) -Granulation Quality [place] -Slough/Fibrin Yes -Necrosis Amt Small (1-33%) -Necrotic Tissue Type Adherent Slough -Structure Exposed N/A -Texture (Adele-wound Skin Appearance) Assessed, Excoriation, Friable, Scarring -Moisture (Adele-wound Skin Appearance Assessed ) -Color (Adele-wound Skin Appearance) Assessed -Temperature (Adele-wound Skin No Abnormality Appearance) (Pt Warm) -Tenderness on Palpation (Adele-wound No Skin Appearance) -Ulcer Cleansing Wound Cleanser -Foul Odor after Cleansing No -Anesthetic Used 4% Lidocaine Solution #12- L LATERAL ABDOMEN (CTCL) -Combined with other wound No -Current Size (cm) - Length 3.5 -Current Size (cm) - Width 7 -Current Size (cm) - Depth 0.1 -Total Square Cm 24.5 -Tunneling No -Undermining/Tunneling No -Circular Undermining No -Exudate Amt Small -Exudate Type Serosanguineous -Wound Margin Flat & Intact -Granulation Amt Medium (34-66%) -Granulation Quality [place] -Slough/Fibrin Yes -Necrosis Amt Small (1-33%) -Necrotic Tissue Type Adherent Slough -Structure Exposed N/A -Texture (Adele-wound Skin Appearance) Assessed -Moisture (Adele-wound Skin Appearance Assessed ) -Color (Adele-wound Skin Appearance) Assessed -Temperature (Adele-wound Skin No Abnormality Appearance) (Pt Warm) -Tenderness on Palpation (Adele-wound No Skin Appearance) -Ulcer Cleansing Wound Cleanser -Foul Odor after Cleansing No -Anesthetic Used 4% Lidocaine Solution #11- UMBILICUS (CTCL) -Combined with other wound No -Current Size (cm) - Length 5.5 -Current Size (cm) - Width 4 -Current Size (cm) - Depth 0.1 -Total Square Cm 22.0 -Tunneling No -Undermining/Tunneling No -Circular Undermining No -Exudate Amt Small -Exudate Type Serosanguineous -Wound Margin Flat & Intact -Granulation Amt Medium (34-66%) -Granulation Quality [place] -Slough/Fibrin Yes -Necrosis Amt Small (1-33%) -Necrotic Tissue Type Adherent Slough -Structure Exposed N/A -Texture (Adele-wound Skin Appearance) Assessed, Excoriation, Friable, Scarring -Moisture (Adele-wound Skin Appearance Assessed ) -Color (Adele-wound Skin Appearance) Assessed -Temperature (Adele-wound Skin No Abnormality Appearance) (Pt Warm) -Tenderness on Palpation (Adele-wound No Skin Appearance) -Ulcer Cleansing Wound Cleanser -Foul Odor after Cleansing No -Anesthetic Used 4% Lidocaine Solution WC - Nurse 2 - General Ulcer CM Notes Start: 08/23/19 08:39 Freq: Status: Active Protocol: Activity Type Activity Date Activity User E-Sign Co-Sign Detail Recorded Client Recorded Date Recorded By Document 09/13/19 09:10 DV [id number] 09/13/19 09:21 DV 09/13/19 09:10 Wound Center Nurse 2 [Procedure/Treatment] #16 L MID THIGH (CTCL) -Time 09:18 -Correct Patient Yes -Correct Side, Site, Position Yes -Correct Procedure Yes -Procedure Performed Yes -Type of Procedure Debridement -Clinical Debridement Selective -Post Debridement Size (cm) - Length 4.5 -Post Debridement Size (cm) - Width 4.0 -Post Debridement Size (cm) - Depth 0.1 -Total Square Cm 18.00 -Wound/Ulcer Outcome Not Healed #15- L [facility]ERAL THIGH ([facility]) -Time 09:18 -Correct Patient Yes -Correct Side, Site, Position Yes -Correct Procedure Yes -Procedure Performed Yes -Type of Procedure Debridement -Clinical Debridement Selective -Post Debridement Size (cm) - Length 2.5 -Post Debridement Size (cm) - Width 2.8 -Post Debridement Size (cm) - Depth 0.1 -Total Square Cm 7.00 -Wound/Ulcer Outcome Not Healed #14- R KNEE CLUSTER ([facility]) -Time 09:19 -Correct Patient Yes -Correct Side, Site, Position Yes -Correct Procedure Yes -Procedure Performed Yes -Type of Procedure Debridement -Clinical Debridement Selective -Post Debridement Size (cm) - Length 6.0 -Post Debridement Size (cm) - Width 6.0 -Post Debridement Size (cm) - Depth 0.1 -Total Square Cm 36.00 -Wound/Ulcer Outcome Not Healed #13 R UPPER ABDOMEN ([facility]) -Time 09:20 -Correct Patient Yes -Correct Side, Site, Position Yes -Correct Procedure Yes -Procedure Performed Yes -Type of Procedure Debridement -Clinical Debridement Selective -Post Debridement Size (cm) - Length 1.2 -Post Debridement Size (cm) - Width 2.9 -Post Debridement Size (cm) - Depth 0.1 -Total Square Cm 3.48 -Wound/Ulcer Outcome Not Healed #12- L LATERAL ABDOMEN ([facility]) -Time 09:20 -Correct Patient Yes -Correct Side, Site, Position Yes -Correct Procedure Yes -Procedure Performed Yes -Type of Procedure Debridement -Clinical Debridement Subcutaneous -Post Debridement Size (cm) - Length 4.0 -Post Debridement Size (cm) - Width 7.0 -Post Debridement Size (cm) - Depth 0.1 -Total Square Cm 28.00 -Wound/Ulcer Outcome Not Healed #11- UMBILICUS ([facility]) -Time 09:21 -Correct Patient Yes -Correct Side, Site, Position Yes -Correct Procedure Yes -Procedure Performed Yes -Type of Procedure Debridement -Clinical Debridement Subcutaneous -Post Debridement Size (cm) - Length 6.0 -Post Debridement Size (cm) - Width 4.2 -Post Debridement Size (cm) - Depth 0.1 -Total Square Cm 25.20 -Wound/Ulcer Outcome Not Healed [See Physician Procedure note for Specifics] Pain Scale: 0-10 Numeric [Pain] -Is Patient Pain Free? Yes Psych/Mental Status: Normal Affect, Appropriate Debridement Note Post-Debridement Measurements/Treatment WC - Nurse 2 - General Ulcer CM Notes Start: 08/23/19 08:39 Freq: Status: Active Protocol: Activity Type Activity Date Activity User E-Sign Co-Sign Detail Recorded Client Recorded Date Recorded By Document 08/23/19 09:08 DV [id number] 08/23/19 09:37 DV Document 09/13/19 09:10 DV [id number] 09/13/19 09:21 DV 08/23/19 09/13/19 09:08 09:10 Wound Center Nurse 2 #16 L MID THIGH ([facility]) -Time 09:18 -Correct Patient Yes -Correct Side, Site, Position Yes -Correct Procedure Yes -Procedure Performed Yes -Type of Procedure Debridement -Clinical Debridement Selective -Post Debridement Size (cm) - Length 4.5 -Post Debridement Size (cm) - Width 4.0 -Post Debridement Size (cm) - Depth 0.1 -Total Square Cm 18.00 -Wound/Ulcer Outcome Not Healed #15- L LATERAL THIGH ([facility]) -Time 09:31 09:18 -Correct Patient Yes Yes -Correct Side, Site, Position Yes Yes -Correct Procedure Yes Yes -Procedure Performed Yes Yes -Type of Procedure Debridement Debridement -Clinical Debridement Selective Selective -Post Debridement Size (cm) - Length 2.0 2.5 -Post Debridement Size (cm) - Width 1.1 2.8 -Post Debridement Size (cm) - Depth 0.1 0.1 -Total Square Cm 2.20 7.00 -Wound/Ulcer Outcome Not Healed Not Healed -Ulcer Cleansing Rinsed/ Irrigated with Saline -Foul Odor after Cleansing No -Bioengineered Tissue No -Bleeding Controlled with Pressure -Offloading No -Treatment Response Procedure Tolerated Well #14- R KNEE CLUSTER ([facility]) -Time 09:32 09:19 -Correct Patient Yes Yes -Correct Side, Site, Position Yes Yes -Correct Procedure Yes Yes -Procedure Performed Yes Yes -Type of Procedure Debridement Debridement -Clinical Debridement Selective Selective -Post Debridement Size (cm) - Length 4.0 6.0 -Post Debridement Size (cm) - Width 2.5 6.0 -Post Debridement Size (cm) - Depth 0.1 0.1 -Total Square Cm 10.00 36.00 -Wound/Ulcer Outcome Not Healed Not Healed -Ulcer Cleansing Rinsed/ Irrigated with Saline -Foul Odor after Cleansing No -Bioengineered Tissue No -Bleeding Controlled with Pressure -Offloading No -Treatment Response Procedure Tolerated Well #13 R UPPER ABDOMEN ([facility]) -Time 09:32 09:20 -Correct Patient Yes Yes -Correct Side, Site, Position Yes Yes -Correct Procedure Yes Yes -Procedure Performed Yes Yes -Type of Procedure Debridement Debridement -Clinical Debridement Selective Selective -Post Debridement Size (cm) - Length 1.0 1.2 -Post Debridement Size (cm) - Width 2.5 2.9 -Post Debridement Size (cm) - Depth 0.1 0.1 -Total Square Cm 2.50 3.48 -Wound/Ulcer Outcome Not Healed Not Healed -Ulcer Cleansing Rinsed/ Irrigated with Saline -Foul Odor after Cleansing No -Bioengineered Tissue No -Bleeding Controlled with Pressure -Offloading No -Treatment Response Procedure Tolerated Well #12- L LATERAL ABDOMEN ([facility]) -Time 09:32 09:20 -Correct Patient Yes Yes -Correct Side, Site, Position Yes Yes -Correct Procedure Yes Yes -Procedure Performed Yes Yes -Type of Procedure Debridement Debridement -Clinical Debridement Selective Subcutaneous -Post Debridement Size (cm) - Length 4.0 4.0 -Post Debridement Size (cm) - Width 7.0 7.0 -Post Debridement Size (cm) - Depth 0.3 0.1 -Total Square Cm 28.00 28.00 -Wound/Ulcer Outcome Not Healed Not Healed -Ulcer Cleansing Rinsed/ Irrigated with Saline -Foul Odor after Cleansing No -Bioengineered Tissue No -Bleeding Controlled with Pressure -Offloading No -Treatment Response Procedure Tolerated Well #11- UMBILICUS ([facility]) -Time 09:21 -Correct Patient Yes -Correct Side, Site, Position Yes -Correct Procedure Yes -Procedure Performed Yes -Type of Procedure Debridement -Clinical Debridement Subcutaneous -Post Debridement Size (cm) - Length 6.0 -Post Debridement Size (cm) - Width 4.2 -Post Debridement Size (cm) - Depth 0.1 -Total Square Cm 25.20 -Wound/Ulcer Outcome Not Healed Pain Scale: 0-10 Numeric Is Patient Pain Free? Yes Yes Wound debrided: left mid thigh Laterality: Left Type of Debridement: Selective debridement Anesthesia Used: 4% Lidocaine Solution Depth: Down to and including healthy tissue, in the subcutaneous layer Percentage of wound debrided: 50 Instrument Used: - - gauze Tissue Removed: yellow slough, devitalized tissue Severity: Fat Layer Exposed Amount of bleeding with debridement: Mild Bleeding Controlled with: Compression and gauze Patient tolerated procedure well - Additional Wound Wound debrided: left lateral thigh Laterality: Left Type of Debridement: Selective debridement Anesthesia Used: 4% Lidocaine Solution Depth: Down to and including healthy tissue, in the subcutaneous layer Percentage of wound debrided: 50 Instrument Used: - - gauze Tissue Removed: yellow slough, devitalized tissue Severity: Fat Layer Exposed Amount of bleeding with debridement: Mild Bleeding Controlled with: Compression and gauze Patient tolerated procedure: Patient tolerated procedure well - Additional Wound Wound debrided: right knee cluster Laterality: Right Type of Debridement: Selective debridement Anesthesia Used: 4% Lidocaine Solution Depth: Down to and including healthy tissue, in the subcutaneous layer Percentage of wound debrided: 50 Instrument Used: - - gauze Tissue Removed: yellow slough, devitalized tissue Severity: Fat Layer Exposed Amount of bleeding with debridement: Mild Bleeding Controlled with: Compression and gauze Patient tolerated procedure: Patient tolerated procedure well - Additional Wound Wound debrided: right upper abdomen Laterality: Right Type of Debridement: Selective debridement Anesthesia Used: 4% Lidocaine Solution Depth: Down to and including healthy tissue, in the subcutaneous layer Percentage of wound debrided: 100 Instrument Used: - - gauze Tissue Removed: yellow slough, devitalized tissue Severity: Fat Layer Exposed Amount of bleeding with debridement: Mild Bleeding Controlled with: Compression and gauze Patient tolerated procedure: Patient tolerated procedure well - Additional Wound Wound debrided: left lateral abdomen Laterality: Left Type of Debridement: Selective debridement Anesthesia Used: 4% Lidocaine Solution Depth: Down to and including healthy tissue, in the subcutaneous layer Percentage of wound debrided: 80 Instrument Used: - - gauze Tissue Removed: yellow slough, devitalized tissue Severity: Fat Layer Exposed Amount of bleeding with debridement: Mild Bleeding Controlled with: Compression and gauze Patient tolerated procedure: Patient tolerated procedure well - Additional Wound Wound debrided: umbilicus Laterality: Not Applicable Type of Debridement: Selective debridement Anesthesia Used: 4% Lidocaine Solution Depth: Down to and including healthy tissue, in the subcutaneous layer Percentage of wound debrided: 50 Instrument Used: - - gauze Tissue Removed: yellow slough, devitalized tissue Severity: Fat Layer Exposed Amount of bleeding with debridement: Mild Bleeding Controlled with: Compression and gauze Patient tolerated procedure: Patient tolerated procedure well Assessment/Plan Assessment: 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 DVT on anticoagulation with eliquis. Plan: Evaluation of ulcers as documented above. Cutaneous lesions are stable and his left lateral abdomen is improved. Will try treatment with Medihoney and also prescribed luliconazole for candidiasis. Aquacel extra over Adaptic to areas of heavy drainage and xeroform over areas of erythema. Hydrofera blue to left lateral abdomen ulcer for heavy drainage. Change daily to twice daily depending on drainage. He requires HH due to extensive nature of ulcers. Increased protein intake is recommended. Prescription for furosemide given and encourage dto discuss edema with PCP. Also advised tubigrip treatment to control edema as well. His questions were answered and he was advised to call with any questions or concerns. F/U as needed.
== END 2019-09-17 23:59 ==
LOC: WC 08:30
PROVIDERS: PCP Family Medicine; Referring Provider Family Medicine; Visit Provider Family Medicine
DX: L98.499 Non-pressure chronic ulcer of skin of other sites with unspecified severity (principal); C84.A8 Cutaneous T-cell lymphoma, unspecified, lymph nodes of multiple sites; Z79.01 Long term (current) use of anticoagulants; Z86.718 Personal history of other venous thrombosis and embolism
CPT/HCPCS: 97597; 97598

== ENCOUNTER 2019-10-11 08:00 | Outpatient (RCR) | payer MEDICARE, OTHER, SELFPAY ==
[2019-09-18 00:18] VITALS: BP 153/77; PULSE 76; RESP 18; TEMP 36.6
[2019-09-27 08:59] VITALS: BP 144/71; PULSE 91; RESP 18; TEMP 36.3; BMI 35.4
--- NOTE | 2019-09-27 15:04 | PCM.WC.PN ---
(1) Cutaneous T-cell lymphoma Status: Chronic Current Visit: Yes Qualifiers: Lymphoma site: unspecified region Qualified Code(s): C84.A0 - Cutaneous T-cell lymphoma, unspecified, unspecified site Code(s): C84.A0 - Cutaneous T-cell lymphoma, unspecified, unspecified site (2) Skin ulcer Status: Chronic Current Visit: Yes Qualifiers: Non-pressure ulcer stage: with fat layer exposed Code(s): L98.499 - Non-pressure chronic ulcer of skin of other sites with unspecified severity Comment: Multiple sites/ Generalized. Type of Wound Date of Service: 09/27/19 Chief Complaint: Nonhealing skin ulcers in the setting of cutaneous T-cell lymphoma History of Wound: Mr. Saunders is a 69-year-old who presents to the wound center due to nonhealing almost generalized skin ulcer. He was diagnosed with cutaneous T-cell lymphoma and has been in management for about 24 months. 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 Over the months, he has used Xeroform and an absorptive dressing without any significant improvement. Reports significant drainage from all ulcer sites. Also currently on Eliquis due to deep vein thrombosis with subsequent easy bleeding. He feels well otherwise. Denies chills, fever. Currently undergoing chemotherapy as well and follows up at [facility]. Progress of Wound: He has noted some improvement in his ulcers but there has been new ulcers that have developed. He continues to use Aquacel Ag to some and iodoform to others. Some ulcers continue to drain heavily, especially the ones on his abdomen and his right thigh. He denies fever, chills, erythema. - Physical Exam Vital Signs Temp Pulse Resp BP 97.3 F L 91 18 144/71 H 09/27/19 08:59 09/27/19 08:59 09/27/19 08:59 09/27/19 08:59 General: Alert, Oriented x3, Cooperative, No apparent distress HEENT: Atraumatic, Normocephalic Oral: Moist Mucosa Neck: Supple Abdomen: Soft, Non Tender, Obese Extremities: Edema Skin: Ulcer/ Wound Wound Measurements and Assessment WC - Nurse 1 - General Ulcer Measurement Start: 09/27/19 08:59 Freq: Status: Active Protocol: Activity Type Activity Date Activity User E-Sign Co-Sign Detail Recorded Client Recorded Date Recorded By Document 09/27/19 08:59 RB [id number] 09/27/19 09:19 RB 09/27/19 08:59 Wound Center Nurse 1 [Ulcer Assessment] #16 L MID THIGH (CTCL) -Combined with other wound No -Current Size (cm) - Length 5 -Current Size (cm) - Width 4 -Current Size (cm) - Depth 0.1 -Total Square Cm 20 -Tunneling No -Undermining/Tunneling No -Circular Undermining No -Exudate Amt Small -Exudate Type Serosanguineous -Wound Margin Flat & Intact -Granulation Amt Medium (34-66%) -Granulation Quality [place] -Slough/Fibrin Yes -Necrosis Amt Small (1-33%) -Necrotic Tissue Type Adherent Slough -Structure Exposed N/A -Texture (Adele-wound Skin Appearance) Assessed, Excoriation, Friable -Moisture (Adele-wound Skin Appearance Assessed ) -Color (Adele-wound Skin Appearance) Assessed -Temperature (Adele-wound Skin No Abnormality Appearance) (Pt Warm) -Tenderness on Palpation (Adele-wound No Skin Appearance) -Ulcer Cleansing Wound Cleanser -Foul Odor after Cleansing No -Anesthetic Used 4% Lidocaine Solution #15- L LATERAL THIGH (CTCL) -Combined with other wound No -Current Size (cm) - Length 3.8 -Current Size (cm) - Width 3.8 -Current Size (cm) - Depth 0.1 -Total Square Cm 14.44 -Tunneling No -Undermining/Tunneling No -Circular Undermining No -Exudate Amt Small -Exudate Type Serosanguineous -Wound Margin Flat & Intact -Granulation Amt Medium (34-66%) -Granulation Quality [place],Red -Slough/Fibrin Yes -Necrosis Amt Small (1-33%) -Necrotic Tissue Type Adherent Slough -Structure Exposed N/A -Texture (Adele-wound Skin Appearance) Assessed, Excoriation, Friable -Moisture (Adele-wound Skin Appearance Assessed ) -Color (Adele-wound Skin Appearance) Assessed -Temperature (Adele-wound Skin No Abnormality Appearance) (Pt Warm) -Tenderness on Palpation (Adele-wound No Skin Appearance) -Ulcer Cleansing Wound Cleanser -Foul Odor after Cleansing No -Anesthetic Used 4% Lidocaine Solution #14- R KNEE CLUSTER (CTCL) -Combined with other wound No -Current Size (cm) - Length 8 -Current Size (cm) - Width 5 -Current Size (cm) - Depth 0.1 -Total Square Cm 40 -Tunneling No -Undermining/Tunneling No -Circular Undermining No -Exudate Amt Medium -Exudate Type Serosanguineous -Wound Margin Flat & Intact -Granulation Amt Medium (34-66%) -Granulation Quality [place],Red -Slough/Fibrin Yes -Necrosis Amt Small (1-33%) -Necrotic Tissue Type Adherent Slough -Structure Exposed N/A -Texture (Adele-wound Skin Appearance) Assessed, Excoriation, Friable -Moisture (Adele-wound Skin Appearance Assessed ) -Color (Adele-wound Skin Appearance) Assessed -Temperature (Adele-wound Skin No Abnormality Appearance) (Pt Warm) -Tenderness on Palpation (Adele-wound No Skin Appearance) -Ulcer Cleansing Wound Cleanser -Foul Odor after Cleansing No #13 R UPPER ABDOMEN (CTCL) -Combined with other wound No -Current Size (cm) - Length 3 -Current Size (cm) - Width 5.5 -Current Size (cm) - Depth 0.1 -Total Square Cm 16.5 -Tunneling No -Undermining/Tunneling No -Circular Undermining No -Exudate Amt Small -Exudate Type Serosanguineous -Wound Margin Flat & Intact -Granulation Amt Medium (34-66%) -Granulation Quality [place],Red -Slough/Fibrin Yes -Necrosis Amt Small (1-33%) -Structure Exposed N/A -Texture (Adele-wound Skin Appearance) Assessed, Excoriation, Friable -Moisture (Adele-wound Skin Appearance Assessed ) -Color (Adele-wound Skin Appearance) Assessed -Temperature (Adele-wound Skin No Abnormality Appearance) (Pt Warm) -Tenderness on Palpation (Adele-wound No Skin Appearance) -Ulcer Cleansing Wound Cleanser -Foul Odor after Cleansing No -Anesthetic Used 4% Lidocaine Solution #12- L LATERAL ABDOMEN (CTCL) -Combined with other wound No -Current Size (cm) - Length 6 -Current Size (cm) - Width 9 -Current Size (cm) - Depth 0.1 -Total Square Cm 54 -Tunneling No -Undermining/Tunneling No -Circular Undermining No -Exudate Amt Small -Exudate Type Serosanguineous -Wound Margin Flat & Intact -Granulation Amt Medium (34-66%) -Granulation Quality [place],Red -Slough/Fibrin Yes -Necrosis Amt Small (1-33%) -Necrotic Tissue Type Adherent Slough -Structure Exposed N/A -Texture (Adele-wound Skin Appearance) Assessed -Moisture (Adele-wound Skin Appearance Assessed ) -Color (Adele-wound Skin Appearance) Assessed -Temperature (Adele-wound Skin No Abnormality Appearance) (Pt Warm) -Tenderness on Palpation (Adele-wound No Skin Appearance) -Ulcer Cleansing Wound Cleanser -Foul Odor after Cleansing No -Anesthetic Used 4% Lidocaine Solution #11- UMBILICUS (CTCL) -Combined with other wound No -Current Size (cm) - Length 7 -Current Size (cm) - Width 5 -Current Size (cm) - Depth 0.1 -Total Square Cm 35 -Tunneling No -Undermining/Tunneling No -Circular Undermining No -Exudate Amt Small -Exudate Type Serosanguineous -Wound Margin Flat & Intact -Granulation Amt Medium (34-66%) -Granulation Quality [place],Red -Necrosis Amt Small (1-33%) -Necrotic Tissue Type Adherent Slough -Structure Exposed N/A -Texture (Adele-wound Skin Appearance) Assessed -Moisture (Adele-wound Skin Appearance Assessed ) -Color (Adele-wound Skin Appearance) Assessed -Temperature (Adele-wound Skin No Abnormality Appearance) (Pt Warm) -Tenderness on Palpation (Adele-wound No Skin Appearance) -Ulcer Cleansing Wound Cleanser -Foul Odor after Cleansing No -Anesthetic Used 4% Lidocaine Solution WC - Nurse 2 - General Ulcer CM Notes Start: 09/27/19 08:59 Freq: Status: Active Protocol: Activity Type Activity Date Activity User E-Sign Co-Sign Detail Recorded Client Recorded Date Recorded By Document 09/27/19 14:34 DV [id number] 09/27/19 14:45 DV 09/27/19 14:34 Wound Center Nurse 2 [Procedure/Treatment] #16 L MID THIGH (CTCL) -Time 14:39 -Correct Patient Yes -Correct Side, Site, Position Yes -Correct Procedure No -Procedure Performed No -Type of Procedure Debridement -Clinical Debridement Selective -Post Debridement Size (cm) - Length 5.5 -Post Debridement Size (cm) - Width 4.2 -Post Debridement Size (cm) - Depth 0.1 -Total Square Cm 23.10 -Wound/Ulcer Outcome Not Healed -Ulcer Cleansing Rinsed/ Irrigated with Saline -Foul Odor after Cleansing No -Bioengineered Tissue No -Bleeding Controlled with Pressure -Treatment Response Procedure Tolerated Well #15- [facility] -Time 14:40 -Correct Patient Yes -Correct Side, Site, Position Yes -Correct Procedure Yes -Procedure Performed Yes -Type of Procedure Debridement -Clinical Debridement Selective -Post Debridement Size (cm) - Length 4.0 -Post Debridement Size (cm) - Width 4.0 -Post Debridement Size (cm) - Depth 4.0 -Total Square Cm 16.00 #14- R KNEE CLUSTER ([facility]) -Time 14:41 -Correct Patient Yes -Correct Side, Site, Position Yes -Correct Procedure Yes -Procedure Performed Yes -Type of Procedure Debridement -Clinical Debridement Selective -Post Debridement Size (cm) - Length 8.4 -Post Debridement Size (cm) - Width 5.6 -Post Debridement Size (cm) - Depth 0.1 -Total Square Cm 47.04 #13 R UPPER ABDOMEN [facility]) -Time 14:42 -Correct Patient Yes -Correct Side, Site, Position Yes -Correct Procedure Yes -Procedure Performed Yes -Type of Procedure Debridement -Clinical Debridement Selective -Post Debridement Size (cm) - Length 3.0 -Post Debridement Size (cm) - Width 6.0 -Post Debridement Size (cm) - Depth 0.1 -Total Square Cm 18.00 -Wound/Ulcer Outcome Not Healed #12- L LATERAL ABDOMEN ([facility]) -Time 14:42 -Correct Patient Yes -Correct Side, Site, Position Yes -Correct Procedure Yes -Procedure Performed Yes -Type of Procedure Debridement -Clinical Debridement Selective -Post Debridement Size (cm) - Length 5.7 -Post Debridement Size (cm) - Width 10.0 -Post Debridement Size (cm) - Depth 0.1 -Total Square Cm 57.00 -Wound/Ulcer Outcome Not Healed #11- UMBILICUS [facility]) -Time 14:43 -Correct Patient Yes -Correct Side, Site, Position Yes -Correct Procedure Yes -Procedure Performed Yes -Type of Procedure Debridement -Clinical Debridement Selective -Post Debridement Size (cm) - Length 7.0 -Post Debridement Size (cm) - Width 5.0 -Post Debridement Size (cm) - Depth 0.1 -Total Square Cm 35.00 [See Physician Procedure note for Specifics] Pain Scale: 0-10 Numeric [Pain] -Is Patient Pain Free? Yes Psych/Mental Status: Normal Affect, Appropriate Debridement Note Post-Debridement Measurements/Treatment WC - Nurse 2 - General Ulcer CM Notes Start: 09/27/19 08:59 Freq: Status: Active Protocol: Activity Type Activity Date Activity User E-Sign Co-Sign Detail Recorded Client Recorded Date Recorded By Document 09/27/19 14:34 DV [id number] 09/27/19 14:45 DV 09/27/19 14:34 Wound Center Nurse 2 #16 L MID THIGH ([facility]CL) -Time 14:39 -Correct Patient Yes -Correct Side, Site, Position Yes -Correct Procedure No -Procedure Performed No -Type of Procedure Debridement -Clinical Debridement Selective -Post Debridement Size (cm) - Length 5.5 -Post Debridement Size (cm) - Width 4.2 -Post Debridement Size (cm) - Depth 0.1 -Total Square Cm 23.10 -Wound/Ulcer Outcome Not Healed -Ulcer Cleansing Rinsed/ Irrigated with Saline -Foul Odor after Cleansing No -Bioengineered Tissue No -Bleeding Controlled with Pressure -Treatment Response Procedure Tolerated Well #15- L LATERAL THIGH ([facility]CL) -Time 14:40 -Correct Patient Yes -Correct Side, Site, Position Yes -Correct Procedure Yes -Procedure Performed Yes -Type of Procedure Debridement -Clinical Debridement Selective -Post Debridement Size (cm) - Length 4.0 -Post Debridement Size (cm) - Width 4.0 -Post Debridement Size (cm) - Depth 4.0 -Total Square Cm 16.00 #14- R KNEE CLUSTER ([facility]) -Time 14:41 -Correct Patient Yes -Correct Side, Site, Position Yes -Correct Procedure Yes -Procedure Performed Yes -Type of Procedure Debridement -Clinical Debridement Selective -Post Debridement Size (cm) - Length 8.4 -Post Debridement Size (cm) - Width 5.6 -Post Debridement Size (cm) - Depth 0.1 -Total Square Cm 47.04 #13 R UPPER ABDOMEN ([facility]CL) -Time 14:42 -Correct Patient Yes -Correct Side, Site, Position Yes -Correct Procedure Yes -Procedure Performed Yes -Type of Procedure Debridement -Clinical Debridement Selective -Post Debridement Size (cm) - Length 3.0 -Post Debridement Size (cm) - Width 6.0 -Post Debridement Size (cm) - Depth 0.1 -Total Square Cm 18.00 -Wound/Ulcer Outcome Not Healed #12- L LATERAL ABDOMEN ([facility]CL) -Time 14:42 -Correct Patient Yes -Correct Side, Site, Position Yes -Correct Procedure Yes -Procedure Performed Yes -Type of Procedure Debridement -Clinical Debridement Selective -Post Debridement Size (cm) - Length 5.7 -Post Debridement Size (cm) - Width 10.0 -Post Debridement Size (cm) - Depth 0.1 -Total Square Cm 57.00 -Wound/Ulcer Outcome Not Healed #11- UMBILICUS ([facility]) -Time 14:43 -Correct Patient Yes -Correct Side, Site, Position Yes -Correct Procedure Yes -Procedure Performed Yes -Type of Procedure Debridement -Clinical Debridement Selective -Post Debridement Size (cm) - Length 7.0 -Post Debridement Size (cm) - Width 5.0 -Post Debridement Size (cm) - Depth 0.1 -Total Square Cm 35.00 Pain Scale: 0-10 Numeric Is Patient Pain Free? Yes Wound debrided: left mid thigh Laterality: Left Type of Debridement: Selective debridement Anesthesia Used: 4% Lidocaine Solution Depth: Down to and including healthy tissue, in the subcutaneous layer Percentage of wound debrided: 100 Tissue Removed: Yellow slough, devitalized tissue Severity: Fat Layer Exposed Amount of bleeding with debridement: Mild Bleeding Controlled with: Compression and gauze Patient tolerated procedure well - Additional Wound Wound debrided: Left lateral thigh Laterality: Left Type of Debridement: Selective debridement Anesthesia Used: 4% Lidocaine Solution Depth: Down to and including healthy tissue, in the subcutaneous layer Percentage of wound debrided: 100 Instrument Used: - - gauze Tissue Removed: Yellow slough, devitalized tissue Severity: Fat Layer Exposed Amount of bleeding with debridement: Mild Bleeding Controlled with: Compression and gauze Patient tolerated procedure: Patient tolerated procedure well - Additional Wound Wound debrided: Right knee cluster Laterality: Right Type of Debridement: Selective debridement Anesthesia Used: 4% Lidocaine Solution Depth: Down to and including healthy tissue, in the subcutaneous layer Percentage of wound debrided: 100 Instrument Used: - - Gauze Tissue Removed: Yellow slough, devitalized tissue Severity: Fat Layer Exposed Amount of bleeding with debridement: Mild Bleeding Controlled with: Compression and gauze Patient tolerated procedure: Patient tolerated procedure well - Additional Wound Wound debrided: Right upper abdomen Laterality: Right Type of Debridement: Selective debridement Anesthesia Used: 4% Lidocaine Solution Depth: Down to and including healthy tissue, in the subcutaneous layer Percentage of wound debrided: 100 Instrument Used: - - Gauze Tissue Removed: Yellow slough, devitalized tissue Severity: Fat Layer Exposed Amount of bleeding with debridement: Mild Bleeding Controlled with: Compression and gauze Patient tolerated procedure: Patient tolerated procedure well - Additional Wound Wound debrided: Left lateral abdomen Laterality: Left Type of Debridement: Selective debridement Anesthesia Used: 4% Lidocaine Solution Depth: Down to and including healthy tissue, in the subcutaneous layer Instrument Used: 3mm curette Tissue Removed: Yellow slough, devitalized tissue Severity: Fat Layer Exposed Amount of bleeding with debridement: Mild Bleeding Controlled with: Compression and gauze Patient tolerated procedure: Patient tolerated procedure well - Additional Wound Wound debrided: Umbilicus Laterality: Not Applicable Anesthesia Used: 4% Lidocaine Solution Depth: Down to and including healthy tissue Percentage of wound debrided: 100 Instrument Used: - - Gauze Tissue Removed: Yellow slough, devitalized tissue Severity: Fat Layer Exposed Amount of bleeding with debridement: Mild Bleeding Controlled with: Compression and gauze Patient tolerated procedure: Patient tolerated procedure well Assessment/Plan Active Problems Cutaneous T-cell lymphoma (Chronic) Skin ulcer (Chronic) Multiple sites/ Generalized. 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 DVT on anticoagulation with eliquis. Plan: Evaluation and debridement of ulcers as documented above. Cutaneous lesions are stable and his left lateral abdomen is unchanged. He is also having increased lower extremity edema. Will continue with F tubigrip compression. Aquacel extra over Adaptic to areas of heavy drainage and xeroform over areas of erythema. Change daily to twice daily depending on drainage. He requires HH due to extensive nature of ulcers. Increased protein intake is recommended. Encouraged to discuss edema and increase of furosemide with his PCP. His questions were answered and he was advised to call with any questions or concerns. F/U 2 weeks or as needed.
[2019-10-11 08:04] VITALS: BP 135/67; PULSE 98; RESP 20; TEMP 36.9; BMI 35.4
--- NOTE | 2019-10-11 08:58 | PCM.WC.PN ---
(1) Cutaneous T-cell lymphoma Status: Chronic Current Visit: Yes Qualifiers: Lymphoma site: unspecified region Qualified Code(s): C84.A0 - Cutaneous T-cell lymphoma, unspecified, unspecified site Code(s): C84.A0 - Cutaneous T-cell lymphoma, unspecified, unspecified site (2) Skin ulcer Status: Chronic Current Visit: Yes Qualifiers: Non-pressure ulcer stage: with fat layer exposed Qualified Code(s): L98.492 - Non-pressure chronic ulcer of skin of other sites with fat layer exposed Code(s): L98.499 - Non-pressure chronic ulcer of skin of other sites with unspecified severity Comment: Multiple sites/ Generalized. Type of Wound Date of Service: 10/11/19 Chief Complaint: Nonhealing skin ulcers in the setting of cutaneous T-cell lymphoma History of Wound: Mr. Saunders is a 69-year-old who presents to the wound center due to nonhealing almost generalized skin ulcer. He was diagnosed with cutaneous T-cell lymphoma and has been in management for about 24 months. 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 Over the months, he has used Xeroform and an absorptive dressing without any significant improvement. Reports significant drainage from all ulcer sites. Also currently on Eliquis due to deep vein thrombosis with subsequent easy bleeding. He feels well otherwise. Denies chills, fever. Currently undergoing chemotherapy as well and follows up at [facility]. Progress of Wound: He has noted some improvement in his ulcers. He continues to undergo chemotherapy and trearment with prednisone. He continues to use Aquacel Ag to some and iodoform to others. Some ulcers continue to drain heavily, especially the ones on his abdomen and his right thigh. He denies fever, chills, erythema. - Physical Exam Vital Signs Temp Pulse Resp BP 98.4 F 98 20 H 135/67 H 10/11/19 08:04 10/11/19 08:04 10/11/19 08:04 10/11/19 08:04 General: Alert, Oriented x3, Cooperative, No apparent distress HEENT: Atraumatic, Normocephalic Oral: Moist Mucosa Neck: Supple Abdomen: Obese Extremities: Edema Skin: Ulcer/ Wound Wound Measurements and Assessment WC - Nurse 1 - General Ulcer Measurement Start: 09/27/19 08:59 Freq: Status: Active Protocol: Activity Type Activity Date Activity User E-Sign Co-Sign Detail Recorded Client Recorded Date Recorded By Document 10/11/19 08:04 [email or web address] [id number] 10/11/19 08:18 YUSEF 10/11/19 08:04 Wound Center Nurse 1 [Ulcer Assessment] #16 L MID THIGH (CTCL) -Current Size (cm) - Length 2 -Current Size (cm) - Width 1.4 -Current Size (cm) - Depth 0.1 -Total Square Cm 2.8 -Photo Taken No -Exudate Amt Small -Exudate Type Serosanguineous -Wound Margin Distinct, Outline Attached -Granulation Amt Large (67-100%) -Granulation Quality Red -Necrosis Amt None Present (0 %) -Structure Exposed N/A -Texture (Adele-wound Skin Appearance) Friable, Scarring -Moisture (Adele-wound Skin Appearance Dry/Scaly ) -Color (Adele-wound Skin Appearance) Rubor -Temperature (Adele-wound Skin No Abnormality Appearance) (Pt Warm) -Tenderness on Palpation (Adele-wound No Skin Appearance) -Ulcer Cleansing Rinsed/ Irrigated with Saline -Foul Odor after Cleansing No -Anesthetic Used 4% Lidocaine Solution #15- L LATERAL THIGH (CTCL) -Current Size (cm) - Length 0.1 -Current Size (cm) - Width 0.1 -Current Size (cm) - Depth 0.1 -Total Square Cm 0.01 -Photo Taken No -Exudate Amt None Present -Wound Margin Flat & Intact -Granulation Amt Large (67-100%) -Granulation Quality [place] -Necrosis Amt None Present (0 %) -Structure Exposed N/A -Texture (Adele-wound Skin Appearance) Friable, Scarring -Moisture (Adele-wound Skin Appearance Dry/Scaly ) -Color (Adele-wound Skin Appearance) Rubor -Temperature (Adele-wound Skin No Abnormality Appearance) (Pt Warm) -Tenderness on Palpation (Adele-wound No Skin Appearance) -Ulcer Cleansing Rinsed/ Irrigated with Saline -Foul Odor after Cleansing No -Anesthetic Used 4% Lidocaine Solution #14- R KNEE CLUSTER (CTCL) -Current Size (cm) - Length 7 -Current Size (cm) - Width 3.5 -Current Size (cm) - Depth 0.1 -Total Square Cm 24.5 -Photo Taken No -Exudate Amt Small -Exudate Type Serosanguineous -Wound Margin Distinct, Outline Attached -Granulation Amt Large (67-100%) -Granulation Quality Red -Necrosis Amt Small (1-33%) -Necrotic Tissue Type Adherent Slough -Texture (Adele-wound Skin Appearance) Scarring -Moisture (Adele-wound Skin Appearance Dry/Scaly ) -Color (Adele-wound Skin Appearance) Rubor -Temperature (Adele-wound Skin No Abnormality Appearance) (Pt Warm) -Tenderness on Palpation (Adele-wound No Skin Appearance) -Ulcer Cleansing Rinsed/ Irrigated with Saline -Foul Odor after Cleansing No -Anesthetic Used 4% Lidocaine Solution #13 R UPPER ABDOMEN (CTCL) -Current Size (cm) - Length 3 -Current Size (cm) - Width 5 -Current Size (cm) - Depth 0.1 -Total Square Cm 15 -Photo Taken No -Exudate Amt Small -Exudate Type Serosanguineous -Wound Margin Distinct, Outline Attached -Granulation Amt Large (67-100%) -Granulation Quality Red -Necrosis Amt Small (1-33%) -Necrotic Tissue Type Adherent Slough -Structure Exposed N/A -Texture (Adele-wound Skin Appearance) Scarring -Moisture (Adele-wound Skin Appearance Dry/Scaly ) -Color (Adele-wound Skin Appearance) Rubor -Temperature (Adele-wound Skin No Abnormality Appearance) (Pt Warm) -Tenderness on Palpation (Adele-wound No Skin Appearance) -Ulcer Cleansing Rinsed/ Irrigated with Saline -Foul Odor after Cleansing No -Anesthetic Used 4% Lidocaine Solution #12- L LATERAL ABDOMEN (CTCL) -Current Size (cm) - Length 6 -Current Size (cm) - Width 8.8 -Current Size (cm) - Depth 0.1 -Total Square Cm 52.8 -Photo Taken No -Exudate Amt Small -Exudate Type Serosanguineous -Wound Margin Distinct, Outline Attached -Granulation Amt Medium (34-66%) -Granulation Quality Red -Necrosis Amt Medium (34-66%) -Necrotic Tissue Type Adherent Slough -Structure Exposed N/A -Texture (Adele-wound Skin Appearance) Scarring -Moisture (Adele-wound Skin Appearance Dry/Scaly ) -Color (Adele-wound Skin Appearance) Rubor -Temperature (Adele-wound Skin No Abnormality Appearance) (Pt Warm) -Tenderness on Palpation (Adele-wound No Skin Appearance) -Ulcer Cleansing Rinsed/ Irrigated with Saline -Foul Odor after Cleansing No -Anesthetic Used 4% Lidocaine Solution #11- UMBILICUS (CTCL) -Current Size (cm) - Length 1 -Current Size (cm) - Width 1.4 -Current Size (cm) - Depth 0.1 -Total Square Cm 1.4 -Photo Taken No -Exudate Amt Small -Exudate Type Serosanguineous -Wound Margin Distinct, Outline Attached -Granulation Amt Large (67-100%) -Granulation Quality Red -Necrosis Amt Small (1-33%) -Necrotic Tissue Type Adherent Slough -Structure Exposed N/A -Texture (Adele-wound Skin Appearance) Scarring -Moisture (Adele-wound Skin Appearance Dry/Scaly ) -Color (Adele-wound Skin Appearance) Rubor -Temperature (Adele-wound Skin No Abnormality Appearance) (Pt Warm) -Tenderness on Palpation (Adele-wound No Skin Appearance) -Ulcer Cleansing Rinsed/ Irrigated with Saline -Foul Odor after Cleansing No -Anesthetic Used 4% Lidocaine Solution [Edema Assessment] -Right Calf (cm) 41.5 -Right Ankle (cm) 25 -Left Calf (cm) 44 -Left Ankle (cm) 27 WC - Nurse 2 - General Ulcer CM Notes Start: 09/27/19 08:59 Freq: Status: Active Protocol: Activity Type Activity Date Activity User E-Sign Co-Sign Detail Recorded Client Recorded Date Recorded By Document 10/11/19 08:34 DV [id number] 10/11/19 08:48 DV 10/11/19 08:34 Wound Center Nurse 2 [Procedure/Treatment] #16 L MID THIGH (CTCL) -Time 08:35 -Correct Patient Yes -Correct Side, Site, Position Yes -Correct Procedure Yes -Procedure Performed Yes -Type of Procedure Debridement -Clinical Debridement Selective -Post Debridement Size (cm) - Length 1.0 -Post Debridement Size (cm) - Width 1.5 -Post Debridement Size (cm) - Depth 0.1 -Total Square (cm) 1.50 -Wound/Ulcer Outcome Not Healed -Ulcer Cleansing Rinsed/ Irrigated with Saline -Foul Odor after Cleansing No -Bioengineered Tissue No -Bleeding Controlled with Pressure -Offloading No -Treatment Response Procedure Tolerated Well #15- L LATERAL THIGH ([facility]) -Time 08:36 -Correct Patient Yes -Correct Side, Site, Position Yes -Correct Procedure Yes -Procedure Performed Yes -Type of Procedure Debridement -Clinical Debridement Selective -Post Debridement Size (cm) - Length 6.2 -Post Debridement Size (cm) - Width 9.0 -Post Debridement Size (cm) - Depth 0.1 -Total Square (cm) 55.80 -Wound/Ulcer Outcome Not Healed -Ulcer Cleansing Rinsed/ Irrigated with Saline -Foul Odor after Cleansing No -Bioengineered Tissue No -Bleeding Controlled with Pressure -Offloading No -Treatment Response Procedure Tolerated Well #14- R KNEE CLUSTER ([facility]) -Time 08:36 -Correct Patient Yes -Correct Side, Site, Position Yes -Correct Procedure Yes -Procedure Performed Yes -Type of Procedure Debridement -Clinical Debridement Selective -Post Debridement Size (cm) - Length 3.5 -Post Debridement Size (cm) - Width 5.0 -Post Debridement Size (cm) - Depth 0.1 -Total Square (cm) 17.50 -Wound/Ulcer Outcome Not Healed -Ulcer Cleansing Rinsed/ Irrigated with Saline -Foul Odor after Cleansing No -Bioengineered Tissue No -Bleeding Controlled with Pressure -Offloading No -Treatment Response Procedure Tolerated Well #13 R UPPER ABDOMEN ([facility]) -Time 08:37 -Correct Patient Yes -Correct Side, Site, Position Yes -Correct Procedure Yes -Procedure Performed Yes -Type of Procedure Debridement -Clinical Debridement Subcutaneous -Post Debridement Size (cm) - Length 8.0 -Post Debridement Size (cm) - Width 4.0 -Post Debridement Size (cm) - Depth 0.1 -Total Square (cm) 32.00 -Wound/Ulcer Outcome Not Healed -Ulcer Cleansing Rinsed/ Irrigated with Saline -Foul Odor after Cleansing No -Bioengineered Tissue No -Bleeding Controlled with Pressure -Offloading No -Treatment Response Procedure Tolerated Well #12- L LATERAL ABDOMEN ([facility]) -Time 08:37 -Correct Side, Site, Position Yes -Correct Procedure Yes -Procedure Performed Yes -Type of Procedure Debridement -Clinical Debridement Selective -Post Debridement Size (cm) - Length 2.0 -Post Debridement Size (cm) - Width 1.5 -Post Debridement Size (cm) - Depth 0.1 -Total Square (cm) 3.00 -Wound/Ulcer Outcome Not Healed #11- UMBILICUS (CTCL) -Time 08:42 -Correct Patient Yes -Correct Side, Site, Position Yes -Correct Procedure Yes -Procedure Performed Yes -Type of Procedure Debridement -Clinical Debridement Selective -Post Debridement Size (cm) - Length 2.0 -Post Debridement Size (cm) - Width 3.0 -Post Debridement Size (cm) - Depth 0.1 -Total Square (cm) 6.00 -Wound/Ulcer Outcome Not Healed -Ulcer Cleansing Rinsed/ Irrigated with Saline -Foul Odor after Cleansing No -Bioengineered Tissue No -Bleeding Controlled with Pressure -Offloading No -Treatment Response Procedure Tolerated Well [See Physician Procedure note for Specifics] Pain Scale: 0-10 Numeric [Pain] -Is Patient Pain Free? Yes Psych/Mental Status: Normal Affect, Appropriate Debridement Note Post-Debridement Measurements/Treatment WC - Nurse 2 - General Ulcer CM Notes Start: 09/27/19 08:59 Freq: Status: Active Protocol: Activity Type Activity Date Activity User E-Sign Co-Sign Detail Recorded Client Recorded Date Recorded By Document 09/27/19 14:34 DV [id number] 09/27/19 14:45 DV Document 10/11/19 08:34 DV [id number] 10/11/19 08:48 DV 09/27/19 10/11/19 14:34 08:34 Wound Center Nurse 2 #16 L MID THIGH (CTCL) -Time 14:39 08:35 -Correct Patient Yes Yes -Correct Side, Site, Position Yes Yes -Correct Procedure No Yes -Procedure Performed No Yes -Type of Procedure Debridement Debridement -Clinical Debridement Selective Selective -Post Debridement Size (cm) - Length 5.5 1.0 -Post Debridement Size (cm) - Width 4.2 1.5 -Post Debridement Size (cm) - Depth 0.1 0.1 -Total Square (cm) 23.10 1.50 -Wound/Ulcer Outcome Not Healed Not Healed -Ulcer Cleansing Rinsed/ Rinsed/ Irrigated with Irrigated with Saline Saline -Foul Odor after Cleansing No No -Bioengineered Tissue No No -Bleeding Controlled with Pressure Pressure -Offloading No -Treatment Response Procedure Procedure Tolerated Well Tolerated Well #15- L LATERAL THIGH (CTCL) -Time 14:40 08:36 -Correct Patient Yes Yes -Correct Side, Site, Position Yes Yes -Correct Procedure Yes Yes -Procedure Performed Yes Yes -Type of Procedure Debridement Debridement -Clinical Debridement Selective Selective -Post Debridement Size (cm) - Length 4.0 6.2 -Post Debridement Size (cm) - Width 4.0 9.0 -Post Debridement Size (cm) - Depth 4.0 0.1 -Total Square (cm) 16.00 55.80 -Wound/Ulcer Outcome Not Healed -Ulcer Cleansing Rinsed/ Irrigated with Saline -Foul Odor after Cleansing No -Bioengineered Tissue No -Bleeding Controlled with Pressure -Offloading No -Treatment Response Procedure Tolerated Well #14- R KNEE CLUSTER ([facility]) -Time 14:41 08:36 -Correct Patient Yes Yes -Correct Side, Site, Position Yes Yes -Correct Procedure Yes Yes -Procedure Performed Yes Yes -Type of Procedure Debridement Debridement -Clinical Debridement Selective Selective -Post Debridement Size (cm) - Length 8.4 3.5 -Post Debridement Size (cm) - Width 5.6 5.0 -Post Debridement Size (cm) - Depth 0.1 0.1 -Total Square (cm) 47.04 17.50 -Wound/Ulcer Outcome Not Healed -Ulcer Cleansing Rinsed/ Irrigated with Saline -Foul Odor after Cleansing No -Bioengineered Tissue No -Bleeding Controlled with Pressure -Offloading No -Treatment Response Procedure Tolerated Well #13 R UPPER ABDOMEN ([facility]) -Time 14:42 08:37 -Correct Patient Yes Yes -Correct Side, Site, Position Yes Yes -Correct Procedure Yes Yes -Procedure Performed Yes Yes -Type of Procedure Debridement Debridement -Clinical Debridement Selective Subcutaneous -Post Debridement Size (cm) - Length 3.0 8.0 -Post Debridement Size (cm) - Width 6.0 4.0 -Post Debridement Size (cm) - Depth 0.1 0.1 -Total Square (cm) 18.00 32.00 -Wound/Ulcer Outcome Not Healed Not Healed -Ulcer Cleansing Rinsed/ Irrigated with Saline -Foul Odor after Cleansing No -Bioengineered Tissue No -Bleeding Controlled with Pressure -Offloading No -Treatment Response Procedure Tolerated Well #12- L LATERAL ABDOMEN ([facility]) -Time 14:42 08:37 -Correct Patient Yes -Correct Side, Site, Position Yes Yes -Correct Procedure Yes Yes -Procedure Performed Yes Yes -Type of Procedure Debridement Debridement -Clinical Debridement Selective Selective -Post Debridement Size (cm) - Length 5.7 2.0 -Post Debridement Size (cm) - Width 10.0 1.5 -Post Debridement Size (cm) - Depth 0.1 0.1 -Total Square (cm) 57.00 3.00 -Wound/Ulcer Outcome Not Healed Not Healed #11- UMBILICUS (CTCL) -Time 14:43 08:42 -Correct Patient Yes Yes -Correct Side, Site, Position Yes Yes -Correct Procedure Yes Yes -Procedure Performed Yes Yes -Type of Procedure Debridement Debridement -Clinical Debridement Selective Selective -Post Debridement Size (cm) - Length 7.0 2.0 -Post Debridement Size (cm) - Width 5.0 3.0 -Post Debridement Size (cm) - Depth 0.1 0.1 -Total Square (cm) 35.00 6.00 -Wound/Ulcer Outcome Not Healed -Ulcer Cleansing Rinsed/ Irrigated with Saline -Foul Odor after Cleansing No -Bioengineered Tissue No -Bleeding Controlled with Pressure -Offloading No -Treatment Response Procedure Tolerated Well Pain Scale: 0-10 Numeric Is Patient Pain Free? Yes Yes Wound debrided: left mid thigh Laterality: Left Type of Debridement: Selective debridement Anesthesia Used: 4% Lidocaine Solution Depth: Down to and including healthy tissue, in the subcutaneous layer Percentage of wound debrided: 100 Instrument Used: - - gauze Tissue Removed: Yellow slough, devitalized tissue Severity: Limited To Skin Breakdown Amount of bleeding with debridement: Mild Bleeding Controlled with: Compression and gauze Patient tolerated procedure well - Additional Wound Wound debrided: left lateral thigh Laterality: Left Type of Debridement: Selective debridement Anesthesia Used: 4% Lidocaine Solution Depth: Down to and including healthy tissue Percentage of wound debrided: 50 Instrument Used: - - gauze Tissue Removed: Yellow slough, devitalized tissue Severity: Limited To Skin Breakdown Amount of bleeding with debridement: Mild Bleeding Controlled with: Compression and gauze Patient tolerated procedure: Patient tolerated procedure well - Additional Wound Wound debrided: right knee cluster Laterality: Right Type of Debridement: Selective debridement Anesthesia Used: 4% Lidocaine Solution Depth: Down to and including healthy tissue Percentage of wound debrided: 50 Instrument Used: - - gauze Tissue Removed: Yellow slough, devitalized tissue Severity: Fat Layer Exposed Amount of bleeding with debridement: Mild Bleeding Controlled with: Compression and gauze Patient tolerated procedure: Patient tolerated procedure well - Additional Wound Wound debrided: right upper abdomen Laterality: Right Type of Debridement: Selective debridement Anesthesia Used: 4% Lidocaine Solution Depth: Down to and including healthy tissue Percentage of wound debrided: 50 Instrument Used: - - gauze Tissue Removed: Yellow slough, devitalized tissue Severity: Fat Layer Exposed Amount of bleeding with debridement: Mild Bleeding Controlled with: Compression and gauze Patient tolerated procedure: Patient tolerated procedure well - Additional Wound Wound debrided: left lateral abdomen Laterality: Left Type of Debridement: Selective debridement Anesthesia Used: 4% Lidocaine Solution Depth: Down to and including healthy tissue Percentage of wound debrided: 50 Instrument Used: - - gauze Tissue Removed: Yellow slough, devitalized tissue Severity: Limited To Skin Breakdown Amount of bleeding with debridement: Mild Bleeding Controlled with: Compression and gauze Patient tolerated procedure: Patient tolerated procedure well - Additional Wound Wound debrided: umbilicus Laterality: Not Applicable Type of Debridement: Selective debridement Anesthesia Used: 4% Lidocaine Solution Depth: Down to and including healthy tissue Percentage of wound debrided: 50 Instrument Used: - - gauze Tissue Removed: Yellow slough, devitalized tissue Severity: Fat Layer Exposed Amount of bleeding with debridement: Mild Bleeding Controlled with: Compression and gauze Patient tolerated procedure: Patient tolerated procedure well - Additional Wound Wound debrided: right elbow Laterality: Right Type of Debridement: Selective debridement Anesthesia Used: 4% Lidocaine Solution Depth: Down to and including healthy tissue Percentage of wound debrided: 50 Instrument Used: - - gauze Tissue Removed: yellow slough, devitalized tissue Severity: Limited To Skin Breakdown Amount of bleeding with debridement: Mild Bleeding Controlled with: Compression and gauze Patient tolerated procedure: Patient tolerated procedure well Assessment/Plan Active Problems Cutaneous T-cell lymphoma (Chronic) Skin ulcer (Chronic) Multiple sites/ Generalized. 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 DVT on anticoagulation with eliquis. Plan: Evaluation and debridement of ulcers as documented above. Cutaneous lesions are stable and his left lateral abdomen is somewhat improved. His lower extremity edema is stabilized. Will continue with F tubigrip compression. Aquacel extra over Adaptic to areas of heavy drainage and xeroform over areas of erythema. Change daily to twice daily depending on drainage. He requires HH due to extensive nature of ulcers and would benefit from assistance with changes 3 times/week. Increased protein intake is recommended. His questions were answered and he was advised to call with any questions or concerns. F/U 3 weeks or as needed.
== END 2019-10-18 23:59 ==
LOC: WC 08:00
PROVIDERS: PCP Family Medicine; Referring Provider Family Medicine; Visit Provider Family Medicine
DX: L98.492 Non-pressure chronic ulcer of skin of other sites with fat layer exposed (principal); Z86.718 Personal history of other venous thrombosis and embolism; Z79.01 Long term (current) use of anticoagulants; L97.122 Non-pressure chronic ulcer of left thigh with fat layer exposed; L97.812 Non-pressure chronic ulcer of other part of right lower leg with fat layer exposed; C84.A8 Cutaneous T-cell lymphoma, unspecified, lymph nodes of multiple sites; R60.0 Localized edema
CPT/HCPCS: 97597; 97598